=== PATIENT | male | born 1960 | race Caucasian/White ===

== ENCOUNTER 2025-03-25 19:13 | Inpatient (IN) | payer MEDICAID, OTHER ==
[~2025-03-25] VITALS: Ht 188 cm; Wt 83.0 kg
--- NOTE | 2025-03-25 20:03 | ED.PDOC ---
History of Present Illness HPI Comments 64 year-old male, with a Hx of DM, presents to the ED via wheelchair with a chief complaint of L foot pain and swelling for X1 month. Patient reports being non-compliant with DM medications, used to take Metformin but has not in a long time. Left foot is moist with yellow drainage from the big toe, strong odor from the L foot. Patient is not on any antibiotics at the moment. Patient has no further complaints or modifying factors at this time. Patient denies symptoms of weakness, fever, chills, dizziness, or N/V/D. REVIEW OF SYSTEMS: General: No fever, no chills, or fatigue HEENT: No sore throat, no earache, no congestion, no neck pain. Cardiac: No chest pain. No palpitations. Lungs: No shortness of breath, no cough. GI: No nausea, no vomiting, no diarrhea, no constipation, no abdominal pain : No dysuria, frequency, or urgency. No hematuria. Musculoskeletal: (+) L foot pain with swelling Skin: No rash, no itching. Neuro: No headache, no dizziness, no weakness (And as sated in HPI) PHYSICAL EXAM: General: Awake, alert and oriented. No acute distress. Skin: Skin in warm, dry and intact. Appropriate color for ethnicity. HEENT: The head is normocephalic and atraumatic. Conjunctivae are clear without exudates or hemorrhage. Sclera is non-icteric. Eyelids are normal in appearance without swelling or lesions. Oral mucosa is pink and moist Neck: The neck is supple with normal range of motion. No JVD. Cardiac: Heart rate and rhythm are normal. No murmurs, gallops, or rubs are auscultated. Respiratory: No signs of respiratory distress. Lung sounds are clear in all lobes bilaterally without rales, rhonchi, or wheezes. Abdominal: Abdomen is soft, non-tender without distention, guarding or rigidity. Bowel sounds are present and normoactive in all four quadrants. Extremities: L foot First second and third toes swollen, erythemas, weeping; erythema and swelling of entire L foot. Diminished DP pulse Neurological: The patient is awake, alert and oriented to person, place, and time with normal speech. Speech is clear. There is no facial asymmetry. Psychiatric: Appropriate mood and affect. Good judgement and insight. Chief Complaint: Wound Check Time Seen by MD: 20:00 Reviewed Notes: Medications, Allergies Allergies: Coded Allergies: NO KNOWN ALLERGIES (Unverified , 03/25/25) Information Source: Patient Mode of Arrival: Wheelchair Severity: Moderate Timing: Months Duration: Since onset Past Medical History PAST MEDICAL HISTORY: DM Surgical History: Denies all surgeries Family History Family History: Reviewed,noncontributory to illness, No family hx of Cancer, No family hx of DM, No family hx of Heart haseeb, No family hx of HTN, No family hx ofKidney haseeb, No family hx of Liver haseeb, No family hx of Lung haseeb, No family hx of Stroke Social History Smoker: Non-Smoker Alcohol: Denies ETOH Use Drugs: Denies Drug Use Lives In: Home Was a procedure done? Was a procedure done?: No Differential Dx Considerations may include: DM foot wound, Cellulitis, Osteomyelitis, SEPSIS X-Ray, Labs, Meds, VS Vital Signs Date Time Temp Pulse Resp B/P (MAP) Pulse Ox O2 Delivery O2 Flow Rate FiO2 03/25/25 21:33 98.8 114 16 100/60 (73) 96 98.8 03/25/25 19:22 98.9 131 18 126/80 96 98.9 Lab Test 03/25/25 19:59 03/25/25 19:54 Range/Units White Blood Count 10.9 H 4.4-10.8 10^3/uL Red Blood Count 3.92 L 4.5-5.90 10^6/uL Hemoglobin 10.9 L 13.5-17.5 g/dL Hematocrit 31.6 L 41.0-53.0 % Mean Corpuscular Volume 80.7 80.0-100.0 fL Mean Corpuscular Hemoglobin 27.8 L 28.0-32.0 pg Mean Corpuscular Hemoglobin Concent 34.4 32.0-36.0 g/dL Red Cell Distribution Width 15.3 H 11.8-14.3 % Platelet Count 255 140-450 10^3/uL Mean Platelet Volume 7.9 6.9-10.8 fL Neutrophils (%) (Auto) 82.2 H 37.0-80.0 % Lymphocytes (%) (Auto) 10.9 10.0-50.0 % Monocytes (%) (Auto) 6.6 0.0-12.0 % Eosinophils (%) (Auto) 0.0 0.0-7.0 % Basophils (%) (Auto) 0.3 0.0-2.0 % Neutrophils # (Auto) 9.0 H 1.6-8.6 10 ^3/uL Lymphocytes # (Auto) 1.2 0.4-5.4 10 ^3/uL Monocytes # (Auto) 0.7 0-1.3 10 ^3/uL Eosinophils # (Auto) 0 0-0.8 10 ^3/uL Basophils # (Auto) 0 0-0.2 10 ^3/uL Nucleated Red Blood Cells 0.1 % Sodium Level 121 L 136-145 mmol/L Potassium Level 4.1 3.5-5.1 mmol/L Chloride Level 86 L 98-107 mmol/L Carbon Dioxide Level 29 20-31 mmol/L Anion Gap 6 5-15 Blood Urea Nitrogen 12 9-23 mg/dL Creatinine 1.35 H 0.700-1.30 mg/dL Glomerular Filtration Rate Calc 59 >90 mL/min BUN/Creatinine Ratio 8.9 L 10.0-20.0 Serum Glucose 238 H 74-106 mg/dL Calcium Level 8.3 L 8.7-10.4 mg/dL Lactic Acid Level 1.2 0.4-2.0 mmol/L Current Medications Medications (Trade) Dose Ordered Sig/Thea Route Start Time Stop Time Status Last Admin Ceftriaxone Sodium 50 ml @ 100 mls/hr ONCE ONCE IV 03/25/25 20:15 03/25/25 20:44 DC 03/25/25 21:46 Vancomycin HCl 250 ml @ 250 mls/hr ONCE ONCE IV 03/25/25 20:15 03/25/25 21:14 DC 03/25/25 22:18 Time of 1ST Reevaluation: 20:46 Reevaluation 1ST: Unchanged Patient Education/Counseling: Diagnosis, Treatment Family Education/Counseling: No Family Present SEPSIS Sepsis Screen Date sepsis recognized/suspect: Mar 25, 2025 Time Sepsis recognized/suspect: 1929 Recent Procedure: No On Antibiotic Therapy: No Respiratory Rate >20: No Heart Rate >90: Yes Temp<36 C (96.8 F) or >38.3 C: No SBP <90 or MAP <65 mmHG: No New Acute Mental Status Change: No Is the patient on CPAP, BIPAP,: No Physician Orders Wound Culture W/ Gs (03/25/25 19:39) Blood Culture (03/25/25 19:39) L Foot 3 View Xray (03/25/25 19:39) Lt Low Ext Art Duplex (03/25/25 20:03) Cefepime 1gm/50ml (Maxipime 1gm/50ml) (03/26/25 10:00) Vancomycin Per Pharmacy (03/25/25 23:30) *Podiatry Consult Musson(Dvmg) (03/25/25 23:26) Mri L Foot Wo Contrast (03/25/25 23:26) Consistent Carb(Ccho)Diabetes (03/26/25 Breakfast) Basic Metabolic Panel (03/26/25 04:00) Glucose Blood (Accu-Chek Comfort Curve T (03/26/25 00:00) Insulin R (Human) (Insulin R) (03/26/25 00:00) Dextrose 50% Syringe (03/25/25 23:30) Admit (03/25/25 23:26) Hydrocodone-Acet 5/325mg Tab ([place] 5/32 (03/25/25 23:30) Ondansetron Hcl (Zofran) (03/25/25 23:30) Complete Blood Count (03/26/25 04:00) Condition: Stable (03/25/25 23:26) Acetaminophen Tablet (Tylenol Tablet) (03/25/25 23:30) Bedrest With Bathroom Privileg (03/25/25 23:26) Cefepime 1gm/50ml (Maxipime 1gm/50ml) (03/25/25 23:45) Vital Signs Date Time Temp Pulse Resp B/P (MAP) Pulse Ox O2 Delivery O2 Flow Rate FiO2 03/25/25 21:33 98.8 114 16 100/60 (73) 96 98.8 03/25/25 19:22 98.9 131 18 126/80 96 98.9 Laboratory Tests Test 03/25/25 19:54 03/25/25 19:59 Lactic Acid Level 1.2 mmol/L (0.4-2.0) White Blood Count 10.9 10^3/uL (4.4-10.8) H Medications Medications Dose Ordered Sig/Thea Route Start Time Stop Time Status Last Admin Dose Admin Ceftriaxone Sodium 50 ml @ 100 mls/hr ONCE ONCE IV 03/25/25 20:15 03/25/25 20:44 DC 03/25/25 21:46 Vancomycin HCl 250 ml @ 250 mls/hr ONCE ONCE IV 03/25/25 20:15 03/25/25 21:14 DC 03/25/25 22:18 Departure 1 Departure Time of Disposition: 22:04 Impression: Primary Impression: Diabetic foot infection Additional Impression: Osteoporosis Disposition: ADMITTED INPATIENT Condition: Stable Comments [age] male who presents with left foot infection, history of untreated diabetes Antibiotics initiated in the emergency department Extra suggestive of osteoporosis Patient admitted to hospitalist service for further treatment, evaluation and monitoring. Critical Care Note Critical Care Time?: No Stability Stability form required: No Heart Score Heart Score: Heart Score Response (Comments) Value History N/A 0 EKG N/A 0 Age N/A 0 Risk Factors N/A 0 Troponin N/A 0 Total 0 I personally scribed for KADEEM HARMAN MD ([email or web address]) on 03/25/25 at 20:03. Electronically submitted by Gaviota Sanders ([employer]). I personally scribed for KADEEM HARMAN MD ([email or web address]) on 03/25/25 at 20:10. Electronically submitted by Gaviota Sanders ([employer]). KADEEM HARMAN MD Mar 25, 2025 20:03
[2025-03-25 20:28] LABS: Hematocrit 31.6 % (41.0-53.0); Hemoglobin 10.9 g/dL (13.5-17.5); Mean Corpuscular Hemoglobin 27.8 pg (28.0-32.0); Mean Corpuscular Volume 80.7 fL (80.0-100.0); Nucleated Red Blood Cells % 0.1 %
[2025-03-25 20:40] LABS: Potassium 4.1 mmol/L (3.5-5.1)
[2025-03-25 20:41] LABS: Anion Gap 6 (5-15); Carbon Dioxide 29 mmol/L (20-31)
[2025-03-25 20:43] LABS: Calcium 8.3 mg/dL (8.7-10.4); Chloride 86 mmol/L (98-107); Sodium 121 mmol/L (136-145)
[2025-03-25 20:46] LABS: BUN/Creatinine Ratio 8.9 (10.0-20.0); Blood Urea Nitrogen 12 mg/dL (9-23)
[2025-03-25 20:49] LABS: Glucose 238 mg/dL (74-106)
--- NOTE | 2025-03-25 21:18 | DVH ---
CLINICAL INDICATION: LEFT FOOT WOUND TECHNIQUE: 3 radiographic views of the left foot were obtained. COMPARISON: None FINDINGS/IMPRESSION: G areas of osteoporosis are noted. There are no radiopaque foreign bodies. Recommend MRI to exclude osteomyelitis
--- NOTE | 2025-03-25 21:32 | DVH ---
BILATERAL Lower Extremity Arterial Duplex Date: 03/25/2025 08:50 PM CLINICAL HISTORY: R/O PAD VS ISCHEMIA, LEFT FOOT WOUND COMPARISON: None TECHNIQUE: Duplex Doppler evaluation including color Doppler and spectral/pulsed waveform analysis of the lower extremity arteries was performed. Finding: LEFT: Peak systolic velocities are as follows: ACCOUNTS RECEIVABLE ASSOCIATE 71 cm/s triphasic waveform Deep femoral 59 cm/s triphasic waveform SFA proximal 74 cm/s triphasic waveforms SFA mid-portion 88 cm/s triphasic waveform SFA distal 67cm/s triphasic waveform Popliteal Proximal popliteal artery 87 cm/sec triphasic waveform Distal popliteal artery: 130 cm/sec triphasic waveform Posterior tibial 120 cm/s monophasic waveform Anterior tibial 173 cm/s monophasic waveform Dorsalis pedis 142 cm/s monophasic waveform The waveforms are monophasic and triphasic waveform. REFERENCE VALUES, [facility] ([facility], [facility]) vascular Imaging Lab Criteria: Peak systolic velocity ranges (in cm/sec) are as follows: <150 cm/s - <20 % stenosis 150-200 cm/s - 20-49% stenosis 200-300 cm/s - 50-75% stenosis >300 cm/s -> 75% stenosis IMPRESSION: 1. There is no findings arterial insufficiency in the left lower extremity proximal of the popliteal artery. 2. Elevated velocities and monophasic waveform are noted in the distal popliteal artery anterior tibial artery posterior tibial artery and dorsalis pedis.
[2025-03-25] MEDS: VANCOMYCIN 1GM/250ML KIT 250 ML IV ONE (22:18)
[2025-03-25] MEDS ORDERED: DEXTROSE (50%) 50ML SYRG IV PRN (23:30)
[2025-03-25] MEDS ORDERED: ACETAMINOPHEN 325 MG TAB PO PRN (23:30)
[2025-03-25] MEDS ORDERED: VANCOMYCIN PER PHARMACY 0 MG IV SCH (23:30)
[2025-03-25] MEDS ORDERED: ONDANSETRON HCL 4 MG/2 ML VIAL IV PRN (23:30)
--- NOTE | 2025-03-25 23:33 | DVHHP2 ---
History of Present Illness Reason for Visit: Foot infection History of Present Illness 64-year-old male presents for evaluation of left foot infection. Patient reports noticing his left foot swelling a month ago. He states as progressively gotten worse with discharge and foul smell. He has also noticed areas of dark discoloration between his toes. Denies fever or chills. Past Medical History Diabetes mellitus Past Surgical History Denies Family History Noncontributory Smoke: No ALCOHOL: none Drugs: None Lives: with Family Review of Systems Review of Systems Review of systems are currently negative otherwise addressed in HPI. Allergies: Coded Allergies: NO KNOWN ALLERGIES (Unverified , 03/25/25) Exam Vital Signs Vital Signs Date Time Temp Pulse Resp B/P (MAP) Pulse Ox O2 Delivery O2 Flow Rate FiO2 03/25/25 21:33 98.8 114 16 100/60 (73) 96 98.8 Exam Gen: 64-year-old male in mild distress Skin: Warm, dry, normal color and texture, no rash. HEENT: Normocephalic atraumatic, mucous membranes moist and pink. Neck: Cervical and supraclavicular nodes normal without enlargement, trachea is midline, thyroid gland is normal without masses. Pulmonary: Clear to auscultation and percussion bilaterally. Cardiac: Regular rate and rhythm. No murmur Abdomen: Soft, nontender, nondistended, bowel sounds present all 4 quadrants, no guarding, no rigidity, no organomegaly. Extremities: No cyanosis, clubbing, left foot with foul-smelling discharge, cellulitis Neuro: Cranial nerves II through XII grossly intact, normal affect and speech, no focal motor deficits. Labs/Xrays ORDERING PHYSICIAN: KADEEM HARMAN MD PROCEDURE(s): LFOOT - L FOOT 3 VIEW XRAY REASON: LEFT FOOT WOUND ORDER NUMBER(s): [id number], ACCESSION NUMBER(s): [id number] CLINICAL INDICATION: LEFT FOOT WOUND TECHNIQUE: 3 radiographic views of the left foot were obtained. COMPARISON: None FINDINGS/IMPRESSION: G areas of osteoporosis are noted. There are no radiopaque foreign bodies. Recommend MRI to exclude osteomyelitis RING PHYSICIAN: KADEEM HARMAN MD PROCEDURE(s): LLEAD - Lt Low Ext Art Duplex REASON: R/O PAD VS ISCHEMIA, LEFT FOOT WOUND ORDER NUMBER(s): [id number], ACCESSION NUMBER(s): [id number] BILATERAL Lower Extremity Arterial Duplex Date: 03/25/2025 08:50 PM CLINICAL HISTORY: R/O PAD VS ISCHEMIA, LEFT FOOT WOUND COMPARISON: None TECHNIQUE: Duplex Doppler evaluation including color Doppler and spectral/pulsed waveform analysis of the lower extremity arteries was performed. Finding: LEFT: Peak systolic velocities are as follows: LICENSED CLINICIAN 71 cm/s triphasic waveform Deep femoral 59 cm/s triphasic waveform SFA proximal 74 cm/s triphasic waveforms SFA mid-portion 88 cm/s triphasic waveform SFA distal 67cm/s triphasic waveform Popliteal Proximal popliteal artery 87 cm/sec triphasic waveform Distal popliteal artery: 130 cm/sec triphasic waveform Posterior tibial 120 cm/s monophasic waveform Anterior tibial 173 cm/s monophasic waveform Dorsalis pedis 142 cm/s monophasic waveform The waveforms are monophasic and triphasic waveform. REFERENCE VALUES, [facility]) vascular Imaging Lab Criteria: Peak systolic velocity ranges (in cm/sec) are as follows: <150 cm/s - <20 % stenosis 150-200 cm/s - 20-49% stenosis 200-300 cm/s - 50-75% stenosis >300 cm/s -> 75% stenosis IMPRESSION: 1. There is no findings arterial insufficiency in the left lower extremity proximal of the popliteal artery. 2. Elevated velocities and monophasic waveform are noted in the distal popliteal artery anterior tibial artery posterior tibial artery and dorsalis pedis. Labs Test 03/25/25 19:59 03/25/25 19:54 Range/Units White Blood Count 10.9 H 4.4-10.8 10^3/uL Red Blood Count 3.92 L 4.5-5.90 10^6/uL Hemoglobin 10.9 L 13.5-17.5 g/dL Hematocrit 31.6 L 41.0-53.0 % Mean Corpuscular Volume 80.7 80.0-100.0 fL Mean Corpuscular Hemoglobin 27.8 L 28.0-32.0 pg Mean Corpuscular Hemoglobin Concent 34.4 32.0-36.0 g/dL Red Cell Distribution Width 15.3 H 11.8-14.3 % Platelet Count 255 140-450 10^3/uL Mean Platelet Volume 7.9 6.9-10.8 fL Neutrophils (%) (Auto) 82.2 H 37.0-80.0 % Lymphocytes (%) (Auto) 10.9 10.0-50.0 % Monocytes (%) (Auto) 6.6 0.0-12.0 % Eosinophils (%) (Auto) 0.0 0.0-7.0 % Basophils (%) (Auto) 0.3 0.0-2.0 % Neutrophils # (Auto) 9.0 H 1.6-8.6 10 ^3/uL Lymphocytes # (Auto) 1.2 0.4-5.4 10 ^3/uL Monocytes # (Auto) 0.7 0-1.3 10 ^3/uL Eosinophils # (Auto) 0 0-0.8 10 ^3/uL Basophils # (Auto) 0 0-0.2 10 ^3/uL Nucleated Red Blood Cells 0.1 % Sodium Level 121 L 136-145 mmol/L Potassium Level 4.1 3.5-5.1 mmol/L Chloride Level 86 L 98-107 mmol/L Carbon Dioxide Level 29 20-31 mmol/L Anion Gap 6 5-15 Blood Urea Nitrogen 12 9-23 mg/dL Creatinine 1.35 H 0.700-1.30 mg/dL Glomerular Filtration Rate Calc 59 >90 mL/min BUN/Creatinine Ratio 8.9 L 10.0-20.0 Serum Glucose 238 H 74-106 mg/dL Calcium Level 8.3 L 8.7-10.4 mg/dL Lactic Acid Level 1.2 0.4-2.0 mmol/L SEPSIS Sepsis Screen Date sepsis recognized/suspect: Mar 25, 2025 Time Sepsis recognized/suspect: 2132 Recent Procedure: No On Antibiotic Therapy: Yes Respiratory Rate >20: No Heart Rate >90: Yes Temp<36 C (96.8 F) or >38.3 C: No SBP <90 or MAP <65 mmHG: No New Acute Mental Status Change: No Is the patient on CPAP, BIPAP,: No Physician Orders Wound Culture W/ Gs (03/25/25 19:39) Blood Culture (03/25/25 19:39) L Foot 3 View Xray (03/25/25 19:39) Lt Low Ext Art Duplex (03/25/25 20:03) Vital Signs Date Time Temp Pulse Resp B/P (MAP) Pulse Ox O2 Delivery O2 Flow Rate FiO2 03/25/25 21:33 98.8 114 16 100/60 (73) 96 98.8 03/25/25 19:22 98.9 131 18 126/80 96 98.9 Laboratory Tests Test 03/25/25 19:54 03/25/25 19:59 Lactic Acid Level 1.2 mmol/L (0.4-2.0) White Blood Count 10.9 10^3/uL (4.4-10.8) H Medications Medications Dose Ordered Sig/Thea Route Start Time Stop Time Status Last Admin Dose Admin Ceftriaxone Sodium 50 ml @ 100 mls/hr ONCE ONCE IV 03/25/25 20:15 03/25/25 20:44 DC 03/25/25 21:46 100 MLS/HR Vancomycin HCl 250 ml @ 250 mls/hr ONCE ONCE IV 03/25/25 20:15 03/25/25 21:14 DC 03/25/25 22:18 250 MLS/HR Assessment/Plan Assessment/Plan Assessment ? Left foot osteomyelitis Uncontrolled diabetes mellitus Plan Admit the patient to [facility] to the hospitalist Podiatry consult MRI of the foot pending Cefepime/vancomycin Continue treatment per orders. Plan discussed with: Patient Date of Service: Mar 25, 2025 Billing Provider: NEYMAR FUNES Common Visit Codes: [id number] INP/OBS CARE (MOD) NEYMAR FUNES Mar 25, 2025 23:33
[2025-03-26] MEDS: InsuLIN REG 1unit/0.01ml Soln (100units/ml) SC SCH
[2025-03-26] MEDS: ACCU-CHEK COMFORT CURVE STRIP VI SCH (01:35)
[2025-03-26] MEDS: CEFEPIME 1GM/50ML D5W or NS KIT IV ONE (01:46)
[2025-03-26] MEDS: HYDROcodone-ACET 5/325MG TAB PO PRN (02:28)
[2025-03-26 07:01] LABS: Hematocrit 30.9 % (41.0-53.0); Hemoglobin 10.2 g/dL (13.5-17.5); Mean Corpuscular Hemoglobin 27.0 pg (28.0-32.0); Mean Corpuscular Volume 81.4 fL (80.0-100.0); Nucleated Red Blood Cells % 0.1 %
[2025-03-26 07:10] LABS: Anion Gap 6 (5-15); Carbon Dioxide 29 mmol/L (20-31); Potassium 3.7 mmol/L (3.5-5.1)
[2025-03-26 07:16] LABS: Calcium 8.2 mg/dL (8.7-10.4); Chloride 87 mmol/L (98-107); Sodium 122 mmol/L (136-145)
[2025-03-26 07:17] LABS: BUN/Creatinine Ratio 10.4 (10.0-20.0); Blood Urea Nitrogen 16 mg/dL (9-23); Glucose 105 mg/dL (74-106)
--- NOTE | 2025-03-26 08:38 | DVH ---
CHEST RADIOGRAPH Indication: sob Technique: Single frontal view of the chest was obtained COMPARISON: None FINDINGS: Lines and Tubes: None Lungs: Mild diffuse increased interstitial prominence. Pleura: No effusion.No pneumothorax. Cardiomediastinal contours: Unremarkable Bones: Unremarkable IMPRESSION: Possible mild pulmonary vascular congestion versus viral pneumonitis.
--- NOTE | 2025-03-26 09:31 | DVH ---
EXAM: MRI MRI L FOOT WO CONTRAST HISTORY: Rule out osteomyelitis COMPARISON: None TECHNIQUE: Multiplanar, multisequence MRI was performed. FINDINGS: There is dorsal subluxation /dislocation of the 2nd MTP joint with diffuse bone marrow edema noted in the 2nd metatarsal head and neck and throughout the 2nd metatarsal proximal and middle phalanges. The 2nd distal phalanx can not be evaluated due to susceptibility artifact from a retained metallic object. Small 3rd MTP joint effusion. Bone marrow edema is noted in the 3rd proximal phalanx with erosion of the plantar basal cortices compatible with acute osteomyelitis. There is dorsal subluxation of the 3rd MTP joint. There is bone marrow edema in the 3rd metatarsal head. Small 3rd MTP joint effusion. Diffuse soft tissue swelling noted on dorsum of the foot and over toes. Numerous subcentimeter foci are seen dorsally and in the plantar soft tissues. Diffuse plantar and interosseous musculature edema noted. No drainable fluid collection is identified. IMPRESSION: 1. Diffuse cellulitis and gas gangrene of the foot. 2. Septic joint of the 2nd and 3rd MTP joints with osteomyelitis of the corresponding metatarsal heads phalanges. 3. Plantar and interosseous myositis. 4. No drainable fluid collection.
[2025-03-26 09:46] LABS: INR 1.29 (0.9-1.15); Partial Thromboplastin Time 38.1 SEC (24.5-34.5); Prothrombin Time 13.3 sec (9.3-11.8)
[2025-03-26 10:48] VITALS: RESP 18
--- NOTE | 2025-03-26 11:57 | DVHCONRES ---
Date Seen: Mar 26, 2025 Reason for Consultation Left foot wound History of Present Illness 64-year-old male presents for evaluation of left foot infection. Patient reports noticing his left foot swelling a month ago. He states as progressively gotten worse with discharge and foul smell. He has also noticed areas of dark discoloration between his toes. Denies fever or chills. Past Medical History See H&P Past Surgical History See H&P Allergies: Coded Allergies: NO KNOWN ALLERGIES (Unverified , 03/25/25) Current Medications Current Medications Medications (Trade) Dose Ordered Sig/Thea Route PRN Reason Start Time Stop Time Status Last Admin Cefepime HCl 50 ml @ 12.5 mls/hr Q12HR IV 03/26/25 10:00 Vancomycin HCl 0 ml @ 0 mls/hr PER PHARMACY IV 03/25/25 23:30 Diagnostic Test (Pha) (Accu-Chek Comfort Curve T) 1 strip Q6HR 03/26/25 00:00 03/26/25 08:34 Insulin Human Regular (InsuLIN R) Q6HR SC 03/26/25 00:00 03/26/25 01:57 Dextrose 50 ml UD PRN IV Blood Sugar LESS THAN 60 03/25/25 23:30 Acetaminophen/ Hydrocodone Bitart ([place] 5/325MG Tab) 1 tab Q4HP PRN PO MODERATE PAIN (4-6 PAIN SCALE) 03/25/25 23:30 03/26/25 02:28 Ondansetron HCl (Zofran) 4 mg Q4HP PRN IV NAUSEA / VOMITING 03/25/25 23:30 Acetaminophen (Tylenol Tablet) 650 mg Q6HP PRN PO PAIN SCALE 1-3 OR TEMP>100.4 03/25/25 23:30 Clindamycin Phosphate 50 ml @ 50 mls/hr Q8HR IV 03/26/25 14:00 Vital Signs Vital Signs Date Time Temp Pulse Resp B/P (MAP) Pulse Ox O2 Delivery O2 Flow Rate FiO2 03/26/25 10:48 18 Room Air* 0 21 03/26/25 09:59 85 122/73 (89) 99 03/26/25 08:27 97.7 97.7 Physical Exam Dermatological: Skin is dry with mild erythema and some maceration around the wound site No gross deformities noted Mild non-pitting edema present bilaterally Left foot cellulitis with erythema and purulent drainage exposed bone Vascular: Dorsalis pedis and posterior tibial pulses are 1+ bilaterally Capillary refill is under 2 seconds Skin temperature is warm bilaterally Neurologic: Protective sensation is absent on the plantar forefoot bilaterally Monofilament testing reveals decreased sensation in multiple plantar sites Musculoskeletal: Range of motion at the ankle and MTP joints is within normal limits. Strength is 5/5 in all tested muscle groups. Gait is antalgic due to offloading of the affected limb. Labs/Diagnostic Data Labs Test 03/26/25 06:25 03/26/25 01:31 03/25/25 19:54 Range/Units White Blood Count 11.5 H 4.4-10.8 10^3/uL Red Blood Count 3.79 L 4.5-5.90 10^6/uL Hemoglobin 10.2 L 13.5-17.5 g/dL Hematocrit 30.9 L 41.0-53.0 % Mean Corpuscular Volume 81.4 80.0-100.0 fL Mean Corpuscular Hemoglobin 27.0 L 28.0-32.0 pg Mean Corpuscular Hemoglobin Concent 33.2 32.0-36.0 g/dL Red Cell Distribution Width 15.4 H 11.8-14.3 % Platelet Count 251 140-450 10^3/uL Mean Platelet Volume 7.7 6.9-10.8 fL Neutrophils (%) (Auto) 72.4 37.0-80.0 % Lymphocytes (%) (Auto) 17.9 10.0-50.0 % Monocytes (%) (Auto) 9.0 0.0-12.0 % Eosinophils (%) (Auto) 0.2 0.0-7.0 % Basophils (%) (Auto) 0.5 0.0-2.0 % Neutrophils # (Auto) 8.3 1.6-8.6 10 ^3/uL Lymphocytes # (Auto) 2.1 0.4-5.4 10 ^3/uL Monocytes # (Auto) 1.0 0-1.3 10 ^3/uL Eosinophils # (Auto) 0 0-0.8 10 ^3/uL Basophils # (Auto) 0.1 0-0.2 10 ^3/uL Nucleated Red Blood Cells 0.1 % Prothrombin Time 13.3 H 9.3-11.8 sec Prothrombin Time INR 1.29 H 0.9-1.15 Activated Partial Thromboplast Time 38.1 H 24.5-34.5 SEC Sodium Level 122 L 136-145 mmol/L Potassium Level 3.7 3.5-5.1 mmol/L Chloride Level 87 L 98-107 mmol/L Carbon Dioxide Level 29 20-31 mmol/L Anion Gap 6 5-15 Blood Urea Nitrogen 16 9-23 mg/dL Creatinine 1.54 H 0.700-1.30 mg/dL Glomerular Filtration Rate Calc 51 >90 mL/min BUN/Creatinine Ratio 10.4 10.0-20.0 Serum Glucose 105 # 74-106 mg/dL Hemoglobin A1c 8.6 H <5.7 % A1C Serum Osmolality 260 L 278-298 mOsm/kg Calcium Level 8.2 L 8.7-10.4 mg/dL B-Type Natriuretic Peptide 46.26 0-100 pg/mL Vitamin B12 Level 1321 H 211-911 pg/mL Vitamin D 25-Hydroxy 22.4 L 30.0-100 ng/mL Thyroid Stimulating Hormone (TSH) 3.56 0.55-4.78 uIU/mL POC Glucose 365 H 70-106 mg/dl Lactic Acid Level 1.2 0.4-2.0 mmol/L Problems(with codes): (1) Osteoporosis (2) Diabetic foot infection Plan/Recommendation ASSESSMENT: Patient is a [age] year old seen on the floor for a worsening ulcer PLAN: - The patients chart was reviewed, clinical findings were discussed with the patient, the etiologies of the conditions were discussed in detail, and a treatment plan was agreed to at this time, with both oral and written instructions provided. - reviewed advanced imaging - discussed plan is to perform an incision and drainage - patient has not been NPO - take him to the OR today - we will get cultures in the OR - can weightbear as tolerated in postoperative shoe All questions were answered and concerns addressed to the patient's satisfaction. The patient was given the phone number to the clinic and was told how to make contact with the clinic should any concerns or questions arise. Patient understands that if any questions or concerns arise prior to the next appointment, we should be contacted immediately. FOLLOW-UP: Continue to follow while inpatient Plan discussed with: Patient Visit Coding Podiatry Date of Service if different f: Mar 26, 2025 Billing Provider: KIM DIAS DPM Podiatry Common Visit Codes: CONSULT ONLY Podiatry Consult Codes: 43887-NL/OBS [id number] NEW/EST HI 80 KIM DIAS DPM Mar 26, 2025 11:56
[2025-03-26] MEDS: LIDOCAINE 1% HCL (LOCAL ANESTH.) INJ 20ML MDV ONE (12:08)
[2025-03-26 12:20] VITALS: PULSE 88; RESP 16; O2SAT 99
--- NOTE | 2025-03-26 12:20 | DVHOP2 ---
Operative Report - 2 Report Details Date: 03/26/25 Preop Diagnosis: 1. Left foot osteomyelitis 2. Left foot abscess 3. Left foot cellulitis 4. Left foot necrotizing fasciitis 5. Left foot diabetic ulcer Postop Diagnosis: Same as preop Surgeon: Kim Dias MD Anesthesiologist: None Anesthesia: Local Consent: The patient was informed of the risks and benefits of the procedure. These include but are not limited to complications of anesthesia, postoperative infection, incomplete relief of symptoms, recurrence of symptoms, damage to blood vessels, nerves and tendons, deep venous thrombosis, pulmonary embolism and possible need for repeat surgery in the future. Complications: None Estimated Blood Loss: Minimal Fluids: See anesthesia Findings: Consistent with diagnosis Indications for Surgery: Worsening foot wound Name of Procedure Performed 1. Left foot I&D to bone dorsal medial (04186) 2. Left foot I&D to bone dorsal lateral ([id number]) Procedure Details Procedure Details: PRE-PROCEDURE INFORMATION: In the pre-op holding area, the extremity to be operated on was clearly marked and the patient verified correct laterality of the marking. The patient was transferred to the OR table and placed in a supine position. A timeout was performed in which identification of the correct patient, procedure, location, and materials was done. The left foot and leg were prepped and draped in normal sterile fashion. DESCRIPTION OF PROCEDURE: Attention was directed to the left medial dorsal foot where area of fluctuance was noted. An incision was made over this area and was deepened through blunt dissection. The incision was deepened to the level of abscess and bone. Care was taken to the dissection to avoid any neurovascular and tendinous structures. The incision was deepened to the bone, and the abscess appeared to be purulent fluid consistent with pus. The cortices of the bone was then removed with rongeur an all necrotic tissue. After the abscess was drained, the area was irrigated with 3 L normal saline using cysto tubing. Deep cultures were then obtained from the wound. The area was then inspected and any areas of tracking, especially along the tendons were also drained. The wound was packed with Betadine-soaked gauze and we will need to be closed at a later date. Attention was directed to the left lateral dorsal foot where area of fluctuance was noted. An incision was made over this area and was deepened through blunt dissection. The incision was deepened to the level of abscess and bone. Care was taken to the dissection to avoid any neurovascular and tendinous structures. The incision was deepened to the bone, and the abscess appeared to be purulent fluid consistent with pus. The cortices of the bone was then removed with rongeur an all necrotic tissue. After the abscess was drained, the area was irrigated with 3 L normal saline using cysto tubing. Deep cultures were then obtained from the wound. The area was then inspected and any areas of tracking, especially along the tendons were also drained. The wound was packed with Betadine-soaked gauze and we will need to be closed at a later date. All surgical wounds were irrigated copiously with saline and closed in layers with the aforementioned suture material. A dry sterile dressing was placed on the surgical extremity. The patient was placed in a postop shoe POSTOPERATIVE INFORMATION: The patient tolerated the above noted procedure and anesthesia well and was transferred to the PACU with vital signs stable, and vascular status intact with capillary refill intact to all digits. Patient will need 6 weeks IV antibiotics. Patient may we need subsequent I&D. Change the dressing every other day with wound care with Betadine-soaked gauze and ABDs. Condition Good Disposition Still a Patient Visit Coding Podiatry Date of Service if different f: Mar 26, 2025 Billing Provider: KIM DIAS DPM Podiatry Common Visit Codes: PROCEDURE ONLY KIM DIAS DPM Mar 26, 2025 12:20
[2025-03-26] MEDS: VANCOMYCIN 500mg/100mL 100 ML IV ONE (13:02)
[2025-03-26] MEDS: VANCOMYCIN 750MG KIT 100 ML IV ONE (13:11)
[2025-03-26] MEDS: CLINDAMYCIN 300MG IV 50 ML IV ONE (13:28)
[2025-03-26] MEDS: CLINDAMYCIN 600MG IV 50 ML IV SCH (14:09)
[2025-03-26] MEDS: CEFEPIME 1GM/50ML 50 ML IV SCH (15:05)
[2025-03-26 16:37] VITALS: BP 136/84; PULSE 95; RESP 18; TEMP 97.6; O2SAT 98
--- NOTE | 2025-03-26 16:52 | DVHPNRES ---
Progress Note Date Seen: Mar 26, 2025 Resident Creating Document: CHARLY HORTON RESIDENT Medical Necessity Reason Pt with a Central, PICC or Fol: No Subjective Review of Systems This is a 64-year-old male with past medical history of DM 2 came to ER with a complaint of left foot pain associated with swelling, redness, and whitish house smelling discharge one month. The foot pain was 9/10, localized, dull in nature, aggravated on hanging or during walking and mild relieved on taking rest and elevation. Denies Any recent history of trauma or MVA. Patient decided came to ER exiting getting worse day by day. Patient noncompliance with medication and not follow-up with primary care. Podiatry consulted and left dorsal foot medial and lateral I and D done on 03/23/2025. Past medical history: Dm 2 Past surgical history: Nothing contributing Family history: Nothing contributory Personal history: Marijuana and alcohol use disorder. PCP: Not selected Allergy: No known allergy Home medication: none Objective vital signs Vital Sign Date Time Temp Pulse Resp B/P (MAP) Pulse Ox O2 Delivery O2 Flow Rate FiO2 03/26/25 15:00 88 15 105/67 (80) 20 03/26/25 12:20 Room Air 0 99 03/26/25 12:20 97.1 97.1 Total Intake and Output 03/25/25 03/25/25 03/26/25 15:00 23:00 07:00 Intake Total 300 ml Balance 300 ml medications Current Medications Medications Dose Ordered Sig/Thea Route Start Time Stop Time Status Last Admin Dose Admin Cefepime HCl 50 ml @ 12.5 mls/hr Q12HR IV 03/26/25 10:00 03/26/25 15:05 12.5 MLS/HR Vancomycin HCl 0 ml @ 0 mls/hr PER PHARMACY IV 03/25/25 23:30 Diagnostic Test (Pha) 1 strip Q6HR 03/26/25 00:00 03/26/25 13:02 1 STRIP Insulin Human Regular Q6HR SC 03/26/25 00:00 03/26/25 12:59 4 UNITS Dextrose 50 ml UD PRN IV 03/25/25 23:30 Acetaminophen/ Hydrocodone Bitart 1 tab Q4HP PRN PO 03/25/25 23:30 03/26/25 02:28 1 TAB Ondansetron HCl 4 mg Q4HP PRN IV 03/25/25 23:30 Acetaminophen 650 mg Q6HP PRN PO 03/25/25 23:30 Clindamycin Phosphate 50 ml @ 50 mls/hr Q8HR IV 03/26/25 14:00 03/26/25 14:09 50 MLS/HR Insulin Glargine 15 units HS SC 03/26/25 22:00 Sodium Chloride 1,000 ml @ 75 mls/hr [id number] IV 03/26/25 16:15 Examination Gen: 64-year-old male in mild distress Skin: Warm, dry, normal color and texture, no rash. HEENT: Normocephalic atraumatic, mucous membranes moist and pink. Neck: Cervical and supraclavicular nodes normal without enlargement, trachea is midline, thyroid gland is normal without masses. Pulmonary: Clear to auscultation and percussion bilaterally. Cardiac: Regular rate and rhythm. No murmur Abdomen: Soft, nontender, nondistended, bowel sounds present all 4 quadrants, no guarding, no rigidity, no organomegaly. Extremities: left foot with foul-smelling discharge Neuro: Cranial nerves II through XII grossly intact, normal affect and speech, no focal motor deficits. laboratory and microbiology Laboratory Tests 03/26/25 06:25 Test 03/26/25 06:25 Range/Units Serum Glucose 105 # 74-106 mg/dL Problem List/Assessment/Plan Problem List/Assessment/Plan Left foot osteomyelitis Left foot sepsis Left foot cellulitis Left foot Necrotizing fascitis Left foot diabetic ulcer Left foot x-ray shows osteoporosis noted, recommended MRI. Duplex left lower extremity no finding of arterial insufficiency. MRI left foot: Diffuse cellulitis and gas gangrene of left foot, septic joint of 2nd and 3rd MTP joints with osteomyelitis. Plantar and interosseous myositis. Podiatry consulted and I and D medial and lateral left foot done on 03/26/2025. IVF Empiric antibiotic cefepime, vancomycin and clindamycin Enhancement IV antiemetic if needed Blood culture Wound culture wound consult PICC line needs 6 weeks of antibiotic during discharge. 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 More than 23 minute spent with patient. Full code status. Case discussed with Dr. Calix. Plan discussed with: Patient, Other (Nurse) My Orders My Orders Orders - CHARLY HORTON Procedure Category Date Status Time Clindamycin 600mg Iv PHA 03/26/25 In Process (Cleocin Iv) 14:00 Visit Coding STANDARD RES Billing Provider: LEON CALIX MD Date of Service if different f: Mar 26, 2025 Common Visit Codes: [id number] INP/OBS CARE(HIGH) CHARLY HORTON Mar 26, 2025 16:52 LEON CALIX MD Apr 02, 2025 15:45
[2025-03-26 17:13] VITALS: PULSE 94; RESP 17; O2SAT 95
[2025-03-26 20:00] VITALS: PULSE 96; RESP 18; O2SAT 99
[2025-03-26 21:00] VITALS: BP 122/73; PULSE 96; RESP 18; TEMP 98.1; O2SAT 99
[2025-03-26] MEDS: HYDROcodone-ACET 5/325MG TAB PO ONE (21:09)
[2025-03-26] MEDS: INSULIN LANTUS (GLARGINE) 1 /0.01ml (100units/ml) SC SCH (22:04)
[2025-03-27] VITALS (7 sets, daily range): BP systolic 102–135; BP diastolic 57–80; PULSE 85–107; RESP 16–19; TEMP 97.8–98.6; O2SAT 96–97
[2025-03-27 04:39] LABS: Hematocrit 28.9 % (41.0-53.0); Hemoglobin 9.7 g/dL (13.5-17.5); Mean Corpuscular Hemoglobin 27.2 pg (28.0-32.0); Mean Corpuscular Volume 81.4 fL (80.0-100.0); Nucleated Red Blood Cells % 0.2 %
[2025-03-27 04:48] LABS: Alanine Aminotransferase 20 U/L (7-40); Anion Gap 5 (5-15); BUN/Creatinine Ratio 13.4 (10.0-20.0); Blood Urea Nitrogen 18 mg/dL (9-23); Carbon Dioxide 29 mmol/L (20-31); Potassium 4.0 mmol/L (3.5-5.1); Total Protein 6.3 g/dL (5.7-8.2)
[2025-03-27 04:49] LABS: Bilirubin, Total 0.8 mg/dL (0.2-1.0)
[2025-03-27 04:50] LABS: Alkaline Phosphatase 173 U/L (46-116); Chloride 90 mmol/L (98-107); Glucose 179 mg/dL (74-106); Sodium 124 mmol/L (136-145)
[2025-03-27 04:51] LABS: Albumin 2.7 g/dL (3.2-4.8); Calcium 7.8 mg/dL (8.7-10.4)
[2025-03-27] MEDS: SODIUM CHLORIDE 0.9% 1,000 ML IV SCH (05:34)
[2025-03-27] MEDS: FAMOTIDINE 20 MG TAB PO SCH (09:13)
[2025-03-27] MEDS: HEPARIN SODIUM (PORCINE) 5000 UNITS/ML 1ML VIAL SC SCH (09:17)
[2025-03-27] MEDS: VANCOMYCIN 750MG KIT 100 ML IV ONE (13:30)
--- NOTE | 2025-03-27 17:57 | DVHPNRES ---
Progress Note Date Seen: Mar 27, 2025 Resident Creating Document: CHARLY HORTON RESIDENT Medical Necessity Reason Pt with a Central, PICC or Fol: No Subjective Review of Systems This is a 64-year-old male with past medical history of DM 2 came to ER with a complaint of left foot pain associated with swelling, redness, and whitish house smelling discharge one month. The foot pain was 9/10, localized, dull in nature, aggravated on hanging or during walking and mild relieved on taking rest and elevation. Denies Any recent history of trauma or MVA. Patient decided came to ER exiting getting worse day by day. Patient noncompliance with medication and not follow-up with primary care. Podiatry consulted and left dorsal foot medial and lateral I and D done on 03/23/2025. Past medical history: Dm 2 Past surgical history: Nothing contributing Family history: Nothing contributory Personal history: Marijuana and alcohol use disorder. PCP: Not selected Allergy: No known allergy Patient seen and evaluated in bedside today. Patient denies any acute distress pain significantly improved with current pain management. Patient left foot covered with dry bandage. IV antibiotic and patient counseling for PICC line. Verbally agree and signed consent paper for PICC line. Podiatry consult appreciated. Objective vital signs Vital Sign Date Time Temp Pulse Resp B/P (MAP) Pulse Ox O2 Delivery O2 Flow Rate FiO2 03/27/25 17:00 98.0 97 18 135/79 (97) 96 98.0 03/27/25 08:00 Room Air* 0 21 Total Intake and Output 03/26/25 03/26/25 03/27/25 15:00 23:00 07:00 Intake Total 150 ml 50 ml 750 ml Output Total 700 ml Balance 150 ml 50 ml 50 ml medications Current Medications Medications Dose Ordered Sig/Thea Route Start Time Stop Time Status Last Admin Dose Admin Cefepime HCl 50 ml @ 12.5 mls/hr Q12HR IV 03/26/25 10:00 03/27/25 09:13 12.5 MLS/HR Vancomycin HCl 0 ml @ 0 mls/hr PER PHARMACY IV 03/25/25 23:30 Diagnostic Test (Pha) 1 strip Q6HR 03/26/25 00:00 03/27/25 17:37 1 STRIP Insulin Human Regular Q6HR SC 03/26/25 00:00 03/27/25 11:36 6 UNITS Dextrose 50 ml UD PRN IV 03/25/25 23:30 Acetaminophen/ Hydrocodone Bitart 1 tab Q4HP PRN PO 03/25/25 23:30 03/27/25 17:35 1 TAB Ondansetron HCl 4 mg Q4HP PRN IV 03/25/25 23:30 Acetaminophen 650 mg Q6HP PRN PO 03/25/25 23:30 Clindamycin Phosphate 50 ml @ 50 mls/hr Q8HR IV 03/26/25 14:00 03/27/25 13:24 50 MLS/HR Insulin Glargine 15 units HS SC 03/26/25 22:00 03/26/25 22:04 15 UNITS Heparin Sodium (Porcine) 5,000 units Q12HR SC 03/27/25 10:00 Famotidine 20 mg DAILY PO 03/27/25 10:00 03/27/25 09:13 20 MG Examination Gen: 64-year-old male in mild distress Skin: Warm, dry, normal color and texture, no rash. HEENT: Normocephalic atraumatic, mucous membranes moist and pink. Neck: Cervical and supraclavicular nodes normal without enlargement, trachea is midline, thyroid gland is normal without masses. Pulmonary: Clear to auscultation and percussion bilaterally. Cardiac: Regular rate and rhythm. No murmur Abdomen: Soft, nontender, nondistended, bowel sounds present all 4 quadrants, no guarding, no rigidity, no organomegaly. Extremities: left foot covered with dry gauze bandage, right foot no acute changes and 2+ pulses bilateral lower extremity Neuro: Cranial nerves II through XII grossly intact, normal affect and speech, no focal motor deficits. laboratory and microbiology Laboratory Tests 03/27/25 04:12 Test 03/27/25 04:12 Range/Units Serum Glucose 179 H 74-106 mg/dL Microbiology Date/Time Source Procedure Growth Status 03/26/25 12:10 Foot Left Gram Stain - Final Resulted 03/26/25 12:10 Foot Left Anaerobic Culture - Preliminary Resulted 03/26/25 12:10 Foot Left Aerobic Culture - Preliminary Resulted 03/25/25 20:08 Blood Blood Culture - Preliminary NO GROWTH AFTER 24 HOURS OF INCUBATION. Resulted Problem List/Assessment/Plan Problem List/Assessment/Plan Left foot osteomyelitis Left foot sepsis Left foot cellulitis Left foot Necrotizing fascitis Left foot diabetic ulcer Left foot x-ray shows osteoporosis noted, recommended MRI. Duplex left lower extremity no finding of arterial insufficiency. MRI left foot: Diffuse cellulitis and gas gangrene of left foot, septic joint of 2nd and 3rd MTP joints with osteomyelitis. Plantar and interosseous myositis. Podiatry consulted and I and D medial and lateral left foot done on 03/26/2025. IVF Empiric antibiotic cefepime, vancomycin and clindamycin IV antiemetic if needed Vitamin-C and zinc Blood culture x2 negative Wound culture showed Gram-positive cocci in pairs, Gram-negative rods and Gram- positive cocci in chain. Awaiting for final sensitivity. PICC line , 4-6 weeks of antibiotic during discharge. 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 More than 21 minute spent with patient. Full code status. Case discussed with Dr. Calix. Plan discussed with: Patient, Other (Nurse) My Orders My Orders Orders - CHARLY HORTON Procedure Category Date Status Time * Wound Consult CONS 03/26/25 Transmitted Heparin Sodium PHA 03/27/25 In Process (Porcine) 10:00 Famotidine Tablet PHA 03/27/25 In Process (Pepcid Tablet) 10:00 Code Status CODE 03/27/25 Transmitted 06:25 Communication Order ORDERS 03/27/25 Transmitted 06:39 Cleanse Wound With BASSAM 03/27/25 In Process Wound Clean 10:33 * Dietary Consult CONS 03/27/25 Transmitted 14:02 Visit Coding STANDARD RES Billing Provider: LEON CALIX MD Date of Service if different f: Mar 27, 2025 Common Visit Codes: [id number] INP/OBS CARE(MOD) CHARLY HORTON Mar 27, 2025 17:57 LEON CALIX MD Apr 02, 2025 15:53
[2025-03-27] MEDS: ZINC SULFATE 220mg CAP or TAB PO ONE (18:16)
[2025-03-27] MEDS: ASCORBIC ACID 500 MG TAB PO ONE (18:16)
[2025-03-28 05:00] VITALS: BP 129/77; PULSE 95; RESP 18; TEMP 98.5; O2SAT 92
[2025-03-28 05:06] LABS: Urine Budding Yeast OCCASIONAL /hpf (None Seen); Urine Protein, UAD TRACE (Negative); Urine WBC Clumps PRESENT /hpf (None Seen)
[2025-03-28 05:20] LABS: Amphetamine Screen, Urine Pos (NEGATIVE); Barbiturate Scree,Urine Neg (NEGATIVE); Benzodiazephine Screen, Urine Neg (NEGATIVE); Cannabinoid Screen, Urine Pos (NEGATIVE); Cocaine Screen, Urine Neg (NEGATIVE); Opiate Scree,Urine Neg (NEGATIVE); Phencyclidine Screen, Urine Neg (NEGATIVE)
[2025-03-28 06:23] LABS: Hematocrit 26.2 % (41.0-53.0); Hemoglobin 9.0 g/dL (13.5-17.5); Mean Corpuscular Hemoglobin 27.9 pg (28.0-32.0); Mean Corpuscular Volume 81.4 fL (80.0-100.0); Nucleated Red Blood Cells % 0.2 %
[2025-03-28 06:31] LABS: Potassium 4.2 mmol/L (3.5-5.1)
[2025-03-28 06:32] LABS: Anion Gap 5 (5-15); Calcium 7.3 mg/dL (8.7-10.4); Carbon Dioxide 26 mmol/L (20-31); Chloride 95 mmol/L (98-107); Sodium 126 mmol/L (136-145)
[2025-03-28 06:37] LABS: BUN/Creatinine Ratio 15.3 (10.0-20.0); Blood Urea Nitrogen 17 mg/dL (9-23)
[2025-03-28 06:53] LABS: Glucose 135 mg/dL (74-106)
[2025-03-28 09:23] VITALS: BP 120/76; PULSE 87; RESP 17; TEMP 97.1; O2SAT 94
[2025-03-28] MEDS: ASCORBIC ACID 500 MG TAB PO SCH (09:38)
[2025-03-28] MEDS: ZINC SULFATE 220mg CAP or TAB PO SCH (09:38)
--- NOTE | 2025-03-28 10:52 | DVHPNRES ---
Progress Note Date Seen: Mar 28, 2025 Resident Creating Document: CHARLY HORTON RESIDENT Medical Necessity Reason Pt with a Central, PICC or Fol: No Subjective Review of Systems This is a 64-year-old male with past medical history of DM 2 came to ER with a complaint of left foot pain associated with swelling, redness, and whitish house smelling discharge one month. The foot pain was 9/10, localized, dull in nature, aggravated on hanging or during walking and mild relieved on taking rest and elevation. Denies Any recent history of trauma or MVA. Patient decided came to ER exiting getting worse day by day. Patient noncompliance with medication and not follow-up with primary care. Podiatry consulted and left dorsal foot medial and lateral I and D done on 03/23/2025. Past medical history: Dm 2 Past surgical history: Nothing contributing Family history: Nothing contributory Personal history: Marijuana and alcohol use disorder. PCP: Not selected Allergy: No known allergy Patient seen and evaluated in bedside today. Patient currently denies any acute distress except tolerable pain in left foot. Waiting for PICC line. Plan to discharge with IV antibiotic 4-6 weeks at home. Podiatry on board. Objective vital signs Vital Sign Date Time Temp Pulse Resp B/P (MAP) Pulse Ox O2 Delivery O2 Flow Rate FiO2 03/28/25 09:23 97.1 87 17 120/76 (91) 94 97.1 03/28/25 08:00 Room Air* 0 21 Total Intake and Output 03/27/25 03/27/25 03/28/25 15:00 23:00 07:00 Intake Total 500 ml 850 ml 490 ml Output Total 500 ml 400 ml 650 ml Balance 0 ml 450 ml -160 ml medications Current Medications Medications Dose Ordered Sig/Thea Route Start Time Stop Time Status Last Admin Dose Admin Cefepime HCl 50 ml @ 12.5 mls/hr Q12HR IV 03/26/25 10:00 03/28/25 09:39 12.5 MLS/HR Vancomycin HCl 0 ml @ 0 mls/hr PER PHARMACY IV 03/25/25 23:30 Diagnostic Test (Pha) 1 strip Q6HR 03/26/25 00:00 03/28/25 06:24 1 STRIP Insulin Human Regular Q6HR SC 03/26/25 00:00 03/28/25 06:25 2 UNITS Dextrose 50 ml UD PRN IV 03/25/25 23:30 Acetaminophen/ Hydrocodone Bitart 1 tab Q4HP PRN PO 03/25/25 23:30 03/28/25 09:39 1 TAB Ondansetron HCl 4 mg Q4HP PRN IV 03/25/25 23:30 Acetaminophen 650 mg Q6HP PRN PO 03/25/25 23:30 Insulin Glargine 15 units HS SC 03/26/25 22:00 03/27/25 21:58 15 UNITS Heparin Sodium (Porcine) 5,000 units Q12HR SC 03/27/25 10:00 Famotidine 20 mg DAILY PO 03/27/25 10:00 03/28/25 09:38 20 MG Ascorbic Acid 500 mg DAILY PO 03/28/25 10:00 03/28/25 09:38 500 MG Zinc Sulfate 220 mg DAILY PO 03/28/25 10:00 03/28/25 09:38 220 MG Examination Gen: 64-year-old male in mild distress Skin: Warm, dry, normal color and texture, no rash. HEENT: Normocephalic atraumatic, mucous membranes moist and pink. Neck: Cervical and supraclavicular nodes normal without enlargement, trachea is midline, thyroid gland is normal without masses. Pulmonary: Clear to auscultation and percussion bilaterally. Cardiac: Regular rate and rhythm. Abdomen: Soft, nontender, nondistended, bowel sounds present all 4 quadrants, no guarding, no rigidity, no organomegaly. Extremities: left foot covered with dry gauze bandage, right foot no acute changes and 2+ pulses bilateral lower extremity Neuro: Cranial nerves II through XII grossly intact, normal affect and speech, no focal motor deficits. laboratory and microbiology Laboratory Tests 03/28/25 05:25 Test 03/28/25 05:25 Range/Units Serum Glucose 135 H 74-106 mg/dL Microbiology Date/Time Source Procedure Growth Status 03/26/25 12:10 Foot Left Gram Stain - Final Resulted 03/26/25 12:10 Foot Left Anaerobic Culture - Preliminary Resulted 03/26/25 12:10 Foot Left Aerobic Culture - Preliminary Resulted 03/25/25 20:08 Blood Blood Culture - Preliminary NO GROWTH AFTER 48 HOURS OF INCUBATION. Resulted Problem List/Assessment/Plan Problem List/Assessment/Plan Left foot osteomyelitis Left foot sepsis Left foot cellulitis Left foot Necrotizing fascitis Left foot diabetic ulcer Left foot x-ray shows osteoporosis noted, recommended MRI. Duplex left lower extremity no finding of arterial insufficiency. MRI left foot: Diffuse cellulitis and gas gangrene of left foot, septic joint of 2nd and 3rd MTP joints with osteomyelitis. Plantar and interosseous myositis. Podiatry consulted and I and D medial and lateral left foot done on 03/26/2025. Empiric antibiotic cefepime, vancomycin and clindamycin IV antiemetic if needed Vitamin-C and zinc Blood culture x2 negative Wound culture showed Gram-positive cocci in pairs, Gram-negative rods and Gram- positive cocci in chain. Awaiting for final sensitivity. Plan to Discharge with PICC line , 4-6 weeks of IV antibiotic .. 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 More than 23 minute spent with patient. Full code status. Case discussed with Dr. Calix. Plan discussed with: Patient, Other (Nurse) My Orders My Orders Orders - CHARLY HORTON Procedure Category Date Status Time Cleanse Wound With BASSAM 03/27/25 In Process Wound Clean 10:33 * Dietary Consult CONS 03/27/25 Transmitted 14:02 Ascorbic Acid Tablet PHA 03/28/25 In Process (Vitamin C Tablet) 10:00 Zinc Sulfate PHA 03/28/25 In Process 10:00 Visit Coding STANDARD RES Billing Provider: LEON CALIX MD Date of Service if different f: Mar 28, 2025 Common Visit Codes: [id number] INP/OBS CARE(MOD) CHARLY HORTON Mar 28, 2025 10:52 LEON CALIX MD Apr 02, 2025 15:55
[2025-03-28] MEDS: VANCOMYCIN 1GM/250ML KIT 250 ML IV SCH (13:15)
[2025-03-28 13:50] VITALS: BP 104/67; PULSE 77; RESP 17; TEMP 97; O2SAT 97
[2025-03-28 17:55] VITALS: BP 151/74; PULSE 100; RESP 17; TEMP 97.1; O2SAT 96
[2025-03-28 19:30] VITALS: PULSE 100; RESP 16; O2SAT 96
[2025-03-28 21:00] VITALS: BP 157/92; PULSE 101; RESP 20; TEMP 99.4; O2SAT 96
[2025-03-29 05:00] VITALS: BP 107/84; PULSE 97; RESP 18; TEMP 98.4; O2SAT 96
[2025-03-29 06:35] LABS: Nucleated Red Blood Cells % 0.0 %
[2025-03-29 06:38] LABS: Hematocrit 28.0 % (41.0-53.0); Hemoglobin 9.4 g/dL (13.5-17.5); Mean Corpuscular Hemoglobin 27.4 pg (28.0-32.0); Mean Corpuscular Volume 81.4 fL (80.0-100.0)
[2025-03-29 06:45] LABS: Anion Gap 4 (5-15); Carbon Dioxide 30 mmol/L (20-31); Potassium 4.5 mmol/L (3.5-5.1)
[2025-03-29 06:48] LABS: Calcium 7.9 mg/dL (8.7-10.4); Chloride 94 mmol/L (98-107); Sodium 128 mmol/L (136-145)
[2025-03-29 06:51] LABS: BUN/Creatinine Ratio 11.2 (10.0-20.0); Blood Urea Nitrogen 13 mg/dL (9-23)
[2025-03-29 06:52] LABS: Glucose 143 mg/dL (74-106)
[2025-03-29 09:00] VITALS: BP 120/68; PULSE 94; RESP 20; TEMP 97.7; O2SAT 92
[2025-03-29] MEDS: LIDOCAINE 1% (LOCAL ANESTH.) PF 5ml SDV ID ONE (09:10)
[2025-03-29] MEDS: SODIUM CHLOR 0.9% PF (SALINE LOCK) 10ML VIAL/SYR IV SCH (10:00)
[2025-03-29 13:00] VITALS: BP 119/76; PULSE 88; RESP 20; TEMP 98.3; O2SAT 96
--- NOTE | 2025-03-29 14:19 | DVHPNRES ---
Progress Note Date Seen: Mar 29, 2025 Resident Creating Document: CHARLY HORTON RESIDENT Medical Necessity Reason Pt with a Central, PICC or Fol: No Subjective Review of Systems This is a 64-year-old male with past medical history of DM 2 came to ER with a complaint of left foot pain associated with swelling, redness, and whitish house smelling discharge one month. The foot pain was 9/10, localized, dull in nature, aggravated on hanging or during walking and mild relieved on taking rest and elevation. Denies Any recent history of trauma or MVA. Patient decided came to ER exiting getting worse day by day. Patient noncompliance with medication and not follow-up with primary care. Podiatry consulted and left dorsal foot medial and lateral I and D done on 03/23/2025. Past medical history: Dm 2 Past surgical history: Nothing contributing Family history: Nothing contributory Personal history: Marijuana and alcohol use disorder. PCP: Not selected Allergy: No known allergy Patient patient seen and evaluated in bedside today. Patient currently denies any acute symptoms. PICC line placed on 03/29/2020. Podiatry and foot. Waiting for culture and sensitivity and plan to discharge patient with IV antibiotic total 4-6 weeks. Objective vital signs Vital Sign Date Time Temp Pulse Resp B/P (MAP) Pulse Ox O2 Delivery O2 Flow Rate FiO2 03/29/25 13:00 98.3 88 20 119/76 (90) 96 98.3 03/29/25 08:00 Room Air* 0 21 Total Intake and Output 03/28/25 03/28/25 03/29/25 15:00 23:00 07:00 Intake Total 300 ml 700 ml 800 ml Output Total 1400 ml 880 ml Balance 300 ml -700 ml -80 ml medications Current Medications Medications Dose Ordered Sig/Thea Route Start Time Stop Time Status Last Admin Dose Admin Cefepime HCl 50 ml @ 12.5 mls/hr Q12HR IV 03/26/25 10:00 03/29/25 08:56 12.5 MLS/HR Vancomycin HCl 0 ml @ 0 mls/hr PER PHARMACY IV 03/25/25 23:30 Diagnostic Test (Pha) 1 strip Q6HR 03/26/25 00:00 03/29/25 12:03 1 STRIP Insulin Human Regular Q6HR SC 03/26/25 00:00 03/29/25 12:03 4 UNITS Dextrose 50 ml UD PRN IV 03/25/25 23:30 Acetaminophen/ Hydrocodone Bitart 1 tab Q4HP PRN PO 03/25/25 23:30 03/29/25 13:50 1 TAB Ondansetron HCl 4 mg Q4HP PRN IV 03/25/25 23:30 Acetaminophen 650 mg Q6HP PRN PO 03/25/25 23:30 Insulin Glargine 15 units HS SC 03/26/25 22:00 03/28/25 21:02 15 UNITS Heparin Sodium (Porcine) 5,000 units Q12HR SC 03/27/25 10:00 Famotidine 20 mg DAILY PO 03/27/25 10:00 03/29/25 08:57 20 MG Ascorbic Acid 500 mg DAILY PO 03/28/25 10:00 03/29/25 08:56 500 MG Zinc Sulfate 220 mg DAILY PO 03/28/25 10:00 03/29/25 08:57 220 MG Vancomycin HCl 250 ml @ 250 mls/hr DAILY@1300 IV 03/28/25 13:00 03/29/25 13:47 250 MLS/HR Sodium Chloride 10 ml QSHIFT@10,22 IV 03/29/25 10:00 03/29/25 10:00 10 ML Examination Gen: 64-year-old male in mild distress Skin: Warm, dry, normal color and texture, no rash. HEENT: Normocephalic atraumatic, mucous membranes moist and pink. Neck: Cervical and supraclavicular nodes normal without enlargement, trachea is midline, thyroid gland is normal without masses. Pulmonary: Clear to auscultation and percussion bilaterally. Cardiac: Regular rate and rhythm. No murmur Abdomen: Soft, nontender, nondistended, bowel sounds present all 4 quadrants, no guarding, no rigidity, no organomegaly. Extremities: left foot covered with dry gauze bandage, right foot no acute changes and 2+ pulses bilateral lower extremity Neuro: Cranial nerves II through XII grossly intact, normal affect and speech, no focal motor deficits. laboratory and microbiology Laboratory Tests 03/29/25 05:57 Test 03/29/25 05:57 Range/Units Serum Glucose 143 H 74-106 mg/dL Microbiology Date/Time Source Procedure Growth Status 03/26/25 12:10 Foot Left Gram Stain - Final Complete 03/26/25 12:10 Anaerobic Culture - Final Bacteroides fragilis Complete 03/26/25 12:10 Aerobic Culture - Final Providencia rettgeri Enterococcus faecalis Complete 03/25/25 20:08 Blood Blood Culture - Preliminary NO GROWTH AFTER 72 HOURS OF INCUBATION. Resulted Problem List/Assessment/Plan Problem List/Assessment/Plan Left foot osteomyelitis Left foot sepsis Left foot cellulitis Left foot Necrotizing fascitis Left foot diabetic ulcer Left foot x-ray shows osteoporosis noted, recommended MRI. Duplex left lower extremity no finding of arterial insufficiency. MRI left foot: Diffuse cellulitis and gas gangrene of left foot, septic joint of 2nd and 3rd MTP joints with osteomyelitis. Plantar and interosseous myositis. Podiatry consulted and I and D medial and lateral left foot done on 03/26/2025. Empiric antibiotic cefepime, vancomycin and clindamycin IV antiemetic if needed Vitamin-C and zinc Blood culture x2 negative Wound culture showed Gram-positive cocci in pairs, Gram-negative rods and Gram- positive cocci in chain. Awaiting for final sensitivity. PICC line placed on 03/29/2025 , plan 4-6 weeks of IV antibiotic . When culture sensitivity back. 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 More than 19 minute spent with patient. Full code status. Case discussed with Dr. Calix. Plan discussed with: Patient, Other Dietary Evaluation Review Comments: Nutrition Recommendation: 1) Roberto 1 pk BID 2) Monitor PO intake, lab values, weight trend, and I/O Expected Outcomes/Goals: Wound to improve FU 3-5 days Visit Coding STANDARD RES Billing Provider: LEON CALIX MD Date of Service if different f: Mar 29, 2025 Common Visit Codes: [id number] INP/OBS CARE(MOD) CHARLY HORTON RESIDENT Mar 29, 2025 14:19 LEON CALIX MD Apr 03, 2025 13:50
[2025-03-29] MEDS ORDERED: INSULIN LANTUS (GLARGINE) 1 /0.01ml (100units/ml) SC SCH (14:30)
[2025-03-29 17:00] VITALS: BP 127/80; PULSE 90; RESP 20; TEMP 98.1; O2SAT 97
[2025-03-29 21:00] VITALS: BP 145/83; PULSE 97; RESP 17; TEMP 98.8; O2SAT 95
[2025-03-29] MEDS: INSULIN LANTUS (GLARGINE) 1 /0.01ml (100units/ml) SC SCH (21:22)
[2025-03-30] VITALS (8 sets, daily range): BP systolic 106–163; BP diastolic 58–84; PULSE 71–105; RESP 17–18; TEMP 97.4–99.7; O2SAT 94–98
[2025-03-30 06:52] LABS: Hematocrit 26.7 % (41.0-53.0); Hemoglobin 9.1 g/dL (13.5-17.5); Mean Corpuscular Hemoglobin 27.4 pg (28.0-32.0); Mean Corpuscular Volume 80.7 fL (80.0-100.0); Nucleated Red Blood Cells % 0.1 %
[2025-03-30 06:56] LABS: Potassium 4.3 mmol/L (3.5-5.1)
[2025-03-30 06:57] LABS: Anion Gap 6 (5-15); Carbon Dioxide 27 mmol/L (20-31)
[2025-03-30 07:02] LABS: BUN/Creatinine Ratio 11.1 (10.0-20.0); Blood Urea Nitrogen 14 mg/dL (9-23); Calcium 7.9 mg/dL (8.7-10.4); Chloride 94 mmol/L (98-107); Sodium 127 mmol/L (136-145)
[2025-03-30 07:11] LABS: Glucose 147 mg/dL (74-106)
--- NOTE | 2025-03-30 10:27 | DVHPNRES ---
Progress Note Date Seen: Mar 30, 2025 Resident Creating Document: LUIS RAMÍREZ RESIDENT Medical Necessity Reason Pt with a Central, PICC or Fol: No Subjective Review of Systems This is a 64-year-old male with past medical history of DM 2 came to ER with a complaint of left foot pain associated with swelling, redness, and whitish house smelling discharge one month. The foot pain was 9/10, localized, dull in nature, aggravated on hanging or during walking and mild relieved on taking rest and elevation. Denies Any recent history of trauma or MVA. Patient decided came to ER exiting getting worse day by day. Patient noncompliance with medication and not follow-up with primary care. Podiatry consulted and left dorsal foot medial and lateral I and D done on 03/23/2025. Past medical history: Dm 2 Past surgical history: Nothing contributing Family history: Nothing contributory Personal history: Marijuana and alcohol use disorder. PCP: Not selected Allergy: No known allergy Patient patient seen and evaluated in bedside today. Patient currently denies any acute symptoms. Wound culture showed Bacteroides, Providencia and Enterococcus faecalis, sensitive to ertapenem and linezolid. social worker aide was consulted to arrange SNF for continuation of IV antibiotics ertapenem 1 g daily for 6 weeks. He is not eligible for home health for continuation of IV antibiotic as history of drug abuse and UDS is positive for methamphetamine. Objective vital signs Vital Sign Date Time Temp Pulse Resp B/P (MAP) Pulse Ox O2 Delivery O2 Flow Rate FiO2 03/30/25 08:59 98.1 102 18 110/70 (83) 95 98.1 03/29/25 20:00 Room Air* 0 21 Total Intake and Output 03/29/25 03/29/25 03/30/25 15:00 23:00 07:00 Intake Total 300 ml 500 ml 450 ml Output Total 900 ml 800 ml Balance 300 ml -400 ml -350 ml medications Current Medications Medications Dose Ordered Sig/Thea Route Start Time Stop Time Status Last Admin Dose Admin Diagnostic Test (Pha) 1 strip Q6HR 03/26/25 00:00 03/30/25 05:17 1 STRIP Insulin Human Regular Q6HR SC 03/26/25 00:00 03/30/25 05:16 2 UNITS Dextrose 50 ml UD PRN IV 03/25/25 23:30 Acetaminophen/ Hydrocodone Bitart 1 tab Q4HP PRN PO 03/25/25 23:30 03/30/25 09:44 1 TAB Ondansetron HCl 4 mg Q4HP PRN IV 03/25/25 23:30 Acetaminophen 650 mg Q6HP PRN PO 03/25/25 23:30 Heparin Sodium (Porcine) 5,000 units Q12HR SC 03/27/25 10:00 Famotidine 20 mg DAILY PO 03/27/25 10:00 03/30/25 09:44 20 MG Ascorbic Acid 500 mg DAILY PO 03/28/25 10:00 03/30/25 09:44 500 MG Zinc Sulfate 220 mg DAILY PO 03/28/25 10:00 03/30/25 09:44 220 MG Sodium Chloride 10 ml QSHIFT@10,22 IV 03/29/25 10:00 03/30/25 09:48 10 ML Insulin Glargine 20 units HS@2200 SC 03/29/25 22:00 03/29/25 21:22 20 UNITS Ceftriaxone Sodium 50 ml @ 100 mls/hr DAILY@09 IV 03/30/25 09:00 03/30/25 09:43 100 MLS/HR Linezolid 600 mg BID PO 03/30/25 10:00 Examination Physical examination: General Appearance: Alert, Oriented X3, Cooperative, No acute distress HEENT: Atraumatic, PERRLA, EOMI, Mucous membrane moist/pink Respiratory: Clear to auscultation, Normal air movement Cardiovascular: Regular rate, Normal S1, Normal S2, No murmurs, no chest wall tenderness Abdominal: Normal bowel sounds, Soft, No tenderness, No hepatospenomegaly, No masses Extremities: Left foot covered with surgical dressing, No cyanosis, No edema, Normal pulses, No tenderness/swelling Skin: No rashes, No breakdown, No significant lesion Neuro: Normal speech, Strength at 5/5 X4 ext, Normal tone, Sensation intact, Cranial nerves 3-12 NL, Reflexes 2+ Psych/Mental Status: Mental status NL, Mood NL laboratory and microbiology Laboratory Tests 03/30/25 06:02 Test 03/30/25 06:02 Range/Units Serum Glucose 147 H 74-106 mg/dL Microbiology Date/Time Source Procedure Growth Status 03/26/25 12:10 Foot Left Gram Stain - Final Complete 03/26/25 12:10 Anaerobic Culture - Final Bacteroides fragilis Complete 03/26/25 12:10 Aerobic Culture - Final Providencia rettgeri Enterococcus faecalis Complete 03/25/25 20:08 Blood Blood Culture - Preliminary NO GROWTH AFTER 72 HOURS OF INCUBATION. Resulted Labs and/or images reviewed: Labs reviewed by me, Image(s) reviewed by me Problem List/Assessment/Plan Problem List/Assessment/Plan Assessment and plan: Left foot osteomyelitis Left foot cellulitis Left foot Necrotizing fascitis Left foot diabetic ulcer Sepsis due to above Left foot x-ray shows osteoporosis noted, recommended MRI. Duplex left lower extremity no finding of arterial insufficiency. MRI left foot: Diffuse cellulitis and gas gangrene of left foot, septic joint of 2nd and 3rd MTP joints with osteomyelitis. Plantar and interosseous myositis. Podiatry consulted and I and D medial and lateral left foot done on 03/26/2025. 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 More than 19 minute spent with patient. Full code status. Case discussed with Dr. Calix. Plan discussed with: Patient, Other (RN) My Orders My Orders Orders - LUIS RAMÍREZ RESIDENT Procedure Category Date Status Time Ss Consult To Arrange BASSAM 03/29/25 In Process Home Iv 16:25 Ceftriaxone 1gm/50ml PHA 03/30/25 In Process (Rocephin) 09:00 Linezolid Tablet PHA 12/27/25 In Process (Zyvox Tablet) 10:00 Dietary Evaluation Review Comments: Nutrition Recommendation: 1) Roberto 1 pk BID 2) Monitor PO intake, lab values, weight trend, and I/O Expected Outcomes/Goals: Wound to improve FU 3-5 days Visit Coding STANDARD RES Billing Provider: LUIS RAMÍREZ Date of Service if different f: Mar 30, 2025 Common Visit Codes: [id number] INP/OBS CARE(MOD) LUIS RAMÍREZ RESIDENT Mar 30, 2025 10:27 LEON CALIX MD Apr 03, 2025 14:15
[2025-03-30] MEDS: LINEZOLID 600MG TABLET PO SCH (12:28)
[2025-03-30] MEDS: ERTAPENEM SOD INJ 1 GM in SODIUM CHL 0.9% 50 ML IV ONE (15:24)
[2025-03-31] VITALS (7 sets, daily range): BP systolic 103–144; BP diastolic 63–82; PULSE 71–96; RESP 14–18; TEMP 97.7–99.6; O2SAT 96–98
[2025-03-31 07:56] LABS: Nucleated Red Blood Cells % 0.1 %
[2025-03-31 08:00] LABS: Hematocrit 24.1 % (41.0-53.0); Hemoglobin 8.2 g/dL (13.5-17.5); Mean Corpuscular Hemoglobin 27.4 pg (28.0-32.0); Mean Corpuscular Volume 80.7 fL (80.0-100.0)
[2025-03-31] MEDS: ERTAPENEM SOD INJ 1 GM in SODIUM CHL 0.9% 50 ML IV SCH (10:00)
--- NOTE | 2025-03-31 10:52 | DVHPNRES ---
Progress Note Date Seen: Mar 31, 2025 Resident Creating Document: CHARLY HORTON RESIDENT Medical Necessity Reason Pt with a Central, PICC or Fol: No Subjective Review of Systems This is a 64-year-old male with past medical history of DM 2 came to ER with a complaint of left foot pain associated with swelling, redness, and whitish house smelling discharge one month. The foot pain was 9/10, localized, dull in nature, aggravated on hanging or during walking and mild relieved on taking rest and elevation. Denies Any recent history of trauma or MVA. Patient decided came to ER exiting getting worse day by day. Patient noncompliance with medication and not follow-up with primary care. Podiatry consulted and left dorsal foot medial and lateral I and D done on 03/23/2025. Past medical history: Dm 2 Past surgical history: Nothing contributing Family history: Nothing contributory Personal history: Marijuana and alcohol use disorder. PCP: Not selected Allergy: No known allergy Seen and evaluated in bedside today. Patient denies any acute complaint and his pain is improving compared to admission. Consult came back which is sensitive to ertapenem and linezolid. Plan, placement SNF to continue IV antibiotic for 6 weeks. optical worker on board, pending placement. Patient not eligible [employer] due to history of drug abuse and UDS positive for methamphetamine. Left foot covered with dry gauze bandage. Objective vital signs Vital Sign Date Time Temp Pulse Resp B/P (MAP) Pulse Ox O2 Delivery O2 Flow Rate FiO2 03/31/25 08:56 99.0 71 14 126/77 (93) 98 99.0 03/30/25 20:00 Room Air* 0 21 Total Intake and Output 03/30/25 03/30/25 03/31/25 15:00 23:00 07:00 Intake Total 995 ml 700 ml Output Total 1201 ml 600 ml Balance -206 ml 100 ml medications Current Medications Medications Dose Ordered Sig/Thea Route Start Time Stop Time Status Last Admin Dose Admin Diagnostic Test (Pha) 1 strip Q6HR 03/26/25 00:00 03/31/25 05:15 1 STRIP Insulin Human Regular Q6HR SC 03/26/25 00:00 03/31/25 05:15 2 UNITS Dextrose 50 ml UD PRN IV 03/25/25 23:30 Acetaminophen/ Hydrocodone Bitart 1 tab Q4HP PRN PO 03/25/25 23:30 03/31/25 05:26 1 TAB Ondansetron HCl 4 mg Q4HP PRN IV 03/25/25 23:30 Acetaminophen 650 mg Q6HP PRN PO 03/25/25 23:30 Heparin Sodium (Porcine) 5,000 units Q12HR SC 03/27/25 10:00 03/30/25 21:49 5,000 UNITS Famotidine 20 mg DAILY PO 03/27/25 10:00 03/30/25 09:44 20 MG Ascorbic Acid 500 mg DAILY PO 03/28/25 10:00 03/30/25 09:44 500 MG Zinc Sulfate 220 mg DAILY PO 03/28/25 10:00 03/30/25 09:44 220 MG Sodium Chloride 10 ml QSHIFT@10,22 IV 03/29/25 10:00 03/30/25 21:30 10 ML Insulin Glargine 20 units HS@2200 SC 03/29/25 22:00 03/30/25 21:48 20 UNITS Linezolid 600 mg BID PO 03/30/25 10:00 03/30/25 21:30 600 MG Ertapenem 1 gm/ Sodium Chloride 50 ml @ 100 mls/hr DAILY IV 03/31/25 10:00 Examination Patient currently lying on bed, General Appearance: Alert, Oriented X3, Cooperative, No acute distress HEENT: Atraumatic, PERRLA, EOMI, Mucous membrane moist/pink Respiratory: Clear to auscultation, Normal air movement Cardiovascular: Regular rate, Normal S1, Normal S2, No murmurs, no chest wall tenderness Abdominal: Normal bowel sounds, Soft, No tenderness, No hepatospenomegaly, No masses Extremities: Left foot covered with dry bandage, No cyanosis, No edema, Normal pulses, No tenderness/swelling Skin: No rashes, No breakdown, No significant lesion Neuro: Normal speech, Strength at 5/5 X4 ext, Normal tone, Sensation intact, Cranial nerves 3-12 NL, Reflexes 2+ Psych/Mental Status: Mental status NL, Mood NL laboratory and microbiology Laboratory Tests 03/31/25 07:00 03/30/25 06:02 Test 03/30/25 06:02 Range/Units Serum Glucose 147 H 74-106 mg/dL Microbiology Date/Time Source Procedure Growth Status 12/23/25 12:10 Foot Left Gram Stain - Final Complete 03/26/25 12:10 Anaerobic Culture - Final Bacteroides fragilis Complete 03/26/25 12:10 Aerobic Culture - Final Providencia rettgeri Enterococcus faecalis Complete 03/25/25 20:08 Blood Blood Culture - Final NO GROWTH AFTER 5 DAYS OF INCUBATION. Complete Problem List/Assessment/Plan Problem List/Assessment/Plan Left foot osteomyelitis Left foot cellulitis Left foot Necrotizing fascitis Left foot diabetic ulcer Sepsis due to above Left foot x-ray shows osteoporosis noted, recommended MRI. Duplex left lower extremity no finding of arterial insufficiency. MRI left foot: Diffuse cellulitis and gas gangrene of left foot, septic joint of 2nd and 3rd MTP joints with osteomyelitis. Plantar and interosseous myositis. Podiatry consulted and I and D medial and lateral left foot done on 03/26/2025. 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 Diet: Carbohydrate Consistent DVT prophylaxis: Heparin GI prophylaxis: Famotidine Goals of care discussions. More than 23 minute spent with patient. Full code status. Spoke to NOK brother Saroj) over the phone and updated current medical management and verbally agreed vertebral discussed. Case discussed with Dr. Calix. Plan discussed with: Patient, Other (Nurse, NOK-brother(Santos)) My Orders My Orders Orders - CHARLY HORTON RESIDENT Procedure Category Date Status Time Ergocalciferol PHA 03/31/25 Verified (Vitamin D 50,000 10:45 Dietary Evaluation Review Comments: Nutrition Recommendation: 1) Roberto 1 pk BID 2) Monitor PO intake, lab values, weight trend, and I/O Expected Outcomes/Goals: Wound to improve FU 3-5 days Visit Coding STANDARD RES Billing Provider: LEON CALIX MD Date of Service if different f: Mar 31, 2025 Common Visit Codes: [id number] INP/OBS CARE(MOD) CHARLY HORTON RESIDENT Mar 31, 2025 10:52 LEON CALIX MD Apr 03, 2025 14:21
[2025-03-31] MEDS: ERGOCALCIFEROL 50,000 UNIT(1.25MG) CAP PO SCH (11:05)
[2025-04-01 00:57] VITALS: BP 122/75; PULSE 79; RESP 17; TEMP 98.6; O2SAT 96
[2025-04-01 05:00] VITALS: BP 132/77; PULSE 82; RESP 18; TEMP 98.2; O2SAT 97
[2025-04-01 07:17] LABS: Hematocrit 26.8 % (41.0-53.0); Hemoglobin 9.0 g/dL (13.5-17.5); Mean Corpuscular Hemoglobin 27.2 pg (28.0-32.0); Mean Corpuscular Volume 80.7 fL (80.0-100.0); Nucleated Red Blood Cells % 0.1 %
[2025-04-01 07:27] LABS: Anion Gap 4 (5-15); Carbon Dioxide 31 mmol/L (20-31); Potassium 4.3 mmol/L (3.5-5.1)
[2025-04-01 07:33] LABS: BUN/Creatinine Ratio 10.7 (10.0-20.0); Blood Urea Nitrogen 13 mg/dL (9-23); Glucose 95 mg/dL (74-106)
[2025-04-01 07:40] LABS: Calcium 8.3 mg/dL (8.7-10.4); Chloride 96 mmol/L (98-107); Sodium 131 mmol/L (136-145)
[2025-04-01 08:30] VITALS: BP 122/60; PULSE 79; RESP 18; TEMP 97.8; O2SAT 98
[2025-04-01 12:25] VITALS: BP 105/62; PULSE 77; RESP 18; TEMP 97.7; O2SAT 97
--- NOTE | 2025-04-01 14:49 | DVHPNRES ---
Progress Note Date Seen: Apr 01, 2025 Resident Creating Document: CHARLY HORTON RESIDENT Medical Necessity Reason Pt with a Central, PICC or Fol: No Subjective Review of Systems This is a 64-year-old male with past medical history of DM 2 came to ER with a complaint of left foot pain associated with swelling, redness, and whitish house smelling discharge one month. The foot pain was 9/10, localized, dull in nature, aggravated on hanging or during walking and mild relieved on taking rest and elevation. Denies Any recent history of trauma or MVA. Patient decided came to ER exiting getting worse day by day. Patient noncompliance with medication and not follow-up with primary care. Podiatry consulted and left dorsal foot medial and lateral I and D done on 03/23/2025. Past medical history: Dm 2 Past surgical history: Nothing contributing Family history: Nothing contributory Personal history: Marijuana and alcohol use disorder. PCP: Not selected Allergy: No known allergy Patient seen and evaluated in bedside today. Patient denies acute distress. Podiatry on board. Waiting placement SNF to continue IV antibiotic until 05/11/2025. Objective vital signs Vital Sign Date Time Temp Pulse Resp B/P (MAP) Pulse Ox O2 Delivery O2 Flow Rate FiO2 04/01/25 12: 97.7 77 18 105/62 (76) 97 97.7 03/31/25 20:00 Room Air* 0 21 Total Intake and Output 03/31/25 03/31/25 04/01/25 15:00 23:00 07:00 Intake Total 1100 ml 600 ml Balance 1100 ml 600 ml medications Current Medications Medications Dose Ordered Sig/Htea Route Start Time Stop Time Status Last Admin Dose Admin Diagnostic Test (Pha) 1 strip Q6HR 03/26/25 00:00 04/01/25 12:00 1 STRIP Insulin Human Regular Q6HR SC 03/26/25 00:00 04/01/25 12:00 3 UNITS Dextrose 50 ml UD PRN IV 03/25/25 23:30 Acetaminophen/ Hydrocodone Bitart 1 tab Q4HP PRN PO 03/25/25 23:30 04/01/25 10:38 1 TAB Ondansetron HCl 4 mg Q4HP PRN IV 03/25/25 23:30 Acetaminophen 650 mg Q6HP PRN PO 03/25/25 23:30 Heparin Sodium (Porcine) 5,000 units Q12HR SC 03/27/25 10:00 04/01/25 10:00 5,000 UNITS Famotidine 20 mg DAILY PO 03/27/25 10:00 04/01/25 10:00 20 MG Ascorbic Acid 500 mg DAILY PO 03/28/25 10:00 04/01/25 10:00 500 MG Zinc Sulfate 220 mg DAILY PO 03/28/25 10:00 04/01/25 10:00 220 MG Sodium Chloride 10 ml QSHIFT@10,22 IV 03/29/25 10:00 04/01/25 10:00 10 ML Insulin Glargine 20 units HS@2200 SC 03/29/25 22:00 03/31/25 22:00 20 UNITS Linezolid 600 mg BID PO 03/30/25 10:00 04/01/25 10:00 600 MG Ertapenem 1 gm/ Sodium Chloride 50 ml @ 100 mls/hr DAILY IV 03/31/25 10:00 Ergocalciferol 50,000 unit Q7D PO 03/31/25 10:45 03/31/25 11:05 50,000 UNIT Examination Patient currently lying on bed General Appearance: Alert, Oriented X3, Cooperative, No acute distress HEENT: Atraumatic, PERRLA, EOMI, Mucous membrane moist/pink Respiratory: Clear to auscultation, Normal air movement Cardiovascular: Regular rate, Normal S1, Normal S2, No murmurs, no chest wall tenderness Abdominal: Normal bowel sounds, Soft, No tenderness, No hepatospenomegaly, No masses Extremities: Left foot covered with dry bandage, No cyanosis, No edema, Normal pulses, No tenderness/swelling Skin: No rashes, No breakdown, No significant lesion Neuro: Normal speech, Strength at 5/5 X4 ext, Normal tone, Sensation intact, Cranial nerves 3-12 NL Psych/Mental Status: Mental status NL, Mood NL laboratory and microbiology Laboratory Tests 04/01/25 06:35 Test 04/01/25 06:35 Range/Units Serum Glucose 95 74-106 mg/dL Microbiology Date/Time Source Procedure Growth Status 03/26/25 12:10 Foot Left Gram Stain - Final Complete 03/26/25 12:10 Anaerobic Culture - Final Bacteroides fragilis Complete 03/26/25 12:10 Aerobic Culture - Final Providencia rettgeri Enterococcus faecalis Complete 03/25/25 20:08 Blood Blood Culture - Final NO GROWTH AFTER 5 DAYS OF INCUBATION. Complete Problem List/Assessment/Plan Problem List/Assessment/Plan Left foot osteomyelitis Left foot cellulitis Left foot Necrotizing fascitis Left foot diabetic ulcer Sepsis due to above Left foot x-ray shows osteoporosis noted, recommended MRI. Duplex left lower extremity no finding of arterial insufficiency. MRI left foot: Diffuse cellulitis and gas gangrene of left foot, septic joint of 2nd and 3rd MTP joints with osteomyelitis. Plantar and interosseous myositis. Podiatry consulted and I and D medial and lateral left foot done on 03/26/2025. s/p cefepime, vancomycin and clindamycin IV antiemetic if needed Vitamin-C and zinc Blood culture x2 negative Wound culture showed Bacteroides,providencia and Enterococcus faecalis sensitive to ceftriaxone and linezolid PICC line placed on 03/29/2025 IV antibiotic ertapenem until 05/11/2024 and oral Zyvox same duration. 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 Diet: Carbohydrate Consistent DVT prophylaxis: Heparin GI prophylaxis: Famotidine Goals of care discussions. More than 19 minute spent with patient. Full code status. Awaiting Placement to SNF. Case discussed with Dr. Calix. Plan discussed with: Patient, Other (Nurse) Dietary Evaluation Review Comments: Nutrition Recommendation: 1) Roberto 1 pk BID 2) Monitor PO intake, lab values, weight trend, and I/O Expected Outcomes/Goals: Wound to improve FU 3-5 days Visit Coding STANDARD RES Billing Provider: LEON CALIX MD Date of Service if different f: Apr 01, 2025 Common Visit Codes: [id number] INP/OBS CARE(MOD) CHARLY HORTON RESIDENT Apr 01, 2025 14:49 LEON CALIX MD Apr 03, 2025 14:31
[2025-04-01 17:02] VITALS: BP 110/69; PULSE 77; RESP 18; TEMP 97.6; O2SAT 97
[2025-04-01 21:00] VITALS: BP 101/61; PULSE 81; RESP 14; TEMP 98.7; O2SAT 96
[2025-04-02] VITALS (7 sets, daily range): BP systolic 97–150; BP diastolic 53–87; PULSE 74–97; RESP 14–20; TEMP 97.6–98.9; O2SAT 95–97
[2025-04-02 06:14] LABS: Hemoglobin 8.6 g/dL (13.5-17.5)
[2025-04-02 06:17] LABS: Hematocrit 25.8 % (41.0-53.0); Mean Corpuscular Hemoglobin 27.1 pg (28.0-32.0); Mean Corpuscular Volume 81.1 fL (80.0-100.0); Nucleated Red Blood Cells % 0.1 %
[2025-04-02 06:20] LABS: Potassium 4.5 mmol/L (3.5-5.1)
[2025-04-02 06:21] LABS: Anion Gap 5 (5-15); Carbon Dioxide 31 mmol/L (20-31)
[2025-04-02 06:24] LABS: Calcium 8.3 mg/dL (8.7-10.4); Chloride 96 mmol/L (98-107); Sodium 132 mmol/L (136-145)
[2025-04-02 06:26] LABS: BUN/Creatinine Ratio 9.8 (10.0-20.0); Blood Urea Nitrogen 11 mg/dL (9-23)
[2025-04-02 06:27] LABS: Glucose 123 mg/dL (74-106)
--- NOTE | 2025-04-02 13:31 | DVHDSRES ---
Discharge Summary Date of Admission Resident Creating Document: CHARLY HORTON RESIDENT Mar 25, 2025 at 23:26 Date of Discharge: Apr 02, 2025 Labs/Diagnostic Data: Laboratory Results Test 04/02/25 12:22 04/02/25 05:10 03/28/25 05:25 03/28/25 04:00 POC Glucose 206 mg/dl (70-106) White Blood Count 3.7 10^3/uL (4.4-10.8) Red Blood Count 3.18 10^6/uL (4.5-5.90) Hemoglobin 8.6 g/dL (13.5-17.5) Hematocrit 25.8 % (41.0-53.0) Mean Corpuscular Volume 81.1 fL (80.0-100.0) Mean Corpuscular Hemoglobin 27.1 pg (28.0-32.0) Mean Corpuscular Hemoglobin Concent 33.4 g/dL (32.0-36.0) Red Cell Distribution Width 15.3 % (11.8-14.3) Platelet Count 193 10^3/uL (140-450) Mean Platelet Volume 7.0 fL (6.9-10.8) Neutrophils (%) (Auto) 54.2 % (37.0-80.0) Lymphocytes (%) (Auto) 34.1 % (10.0-50.0) Monocytes (%) (Auto) 10.3 % (0.0-12.0) Eosinophils (%) (Auto) 0.8 % (0.0-7.0) Basophils (%) (Auto) 0.6 % (0.0-2.0) Neutrophils # (Auto) 2.0 10 ^3/uL (1.6-8.6) Lymphocytes # (Auto) 1.3 10 ^3/uL (0.4-5.4) Monocytes # (Auto) 0.4 10 ^3/uL (0-1.3) Eosinophils # (Auto) 0 10 ^3/uL (0-0.8) Basophils # (Auto) 0 10 ^3/uL (0-0.2) Nucleated Red Blood Cells 0.1 % Sodium Level 132 mmol/L (136-145) Potassium Level 4.5 mmol/L (3.5-5.1) Chloride Level 96 mmol/L (98-107) Carbon Dioxide Level 31 mmol/L (20-31) Anion Gap 5 (5-15) Blood Urea Nitrogen 11 mg/dL (9-23) Creatinine 1.12 mg/dL (0.700-1.30) Glomerular Filtration Rate Calc 74 mL/min (>90) BUN/Creatinine Ratio 9.8 (10.0-20.0) Serum Glucose 123 mg/dL (74-106) Calcium Level 8.3 mg/dL (8.7-10.4) Random Vancomycin Level 10.9 ug/mL (5-10) Urine Color Yellow (Yellow) Urine Clarity Turbid (Clear) Urine pH 5.5 (5.0-9.0) Urine Specific [place] 1.012 (1.001-1.035) Urine Protein Trace (Negative) Urine Ketones Negative (Negative) Urine Blood 3+ /uL (Negative) Urine Nitrite Negative (Negative) Urine Bilirubin Negative (Negative) Urine Urobilinogen Normal mg/dL (Negative) Urine Leukocyte Esterase 3+ /uL (Negative) Urine RBC 12 /hpf (0 - 3) Urine WBC Clumps Present /hpf (None Seen) Urine Microscopic WBC 46 /HPF (0-3) Urine Squamous Epithelial Cells Few /hpf (<5) Urine Bacteria None seen /hpf (None Seen) Urine Yeast (Budding) Occasional /hpf (None Urine Osmolality 283 mOsm/kg Urine Sodium 11 mmol/L (40-220) Urine Glucose Trace mg/dL (Normal) Urine Opiates Screen Neg (NEGATIVE) Urine Fentanyl Screen Neg (NEGATIVE) Urine Barbiturates Screen Neg (NEGATIVE) Urine Phencyclidine Screen Neg (NEGATIVE) Urine Amphetamines Screen Pos (NEGATIVE) Urine Benzodiazepines Screen Neg (NEGATIVE) Urine Cocaine Screen Neg (NEGATIVE) Urine Cannabinoids Screen Pos (NEGATIVE) Test 03/27/25 04:12 03/26/25 06:25 03/25/25 19:54 Total Bilirubin 0.8 mg/dL (0.2-1.0) Aspartate Amino Transferase (AST) 32 U/L (13-40) Alanine Aminotransferase (ALT) 20 U/L (7-40) Alkaline Phosphatase 173 U/L (46-116) Total Protein 6.3 g/dL (5.7-8.2) Albumin 2.7 g/dL (3.2-4.8) Prothrombin Time 13.3 sec (9.3-11.8) Prothrombin Time INR 1.29 (0.9-1.15) Activated Partial Thromboplast Time 38.1 SEC (24.5-34.5) Hemoglobin A1c 8.6 % A1C (<5.7) Serum Osmolality 260 mOsm/kg (278-298) B-Type Natriuretic Peptide 46.26 pg/mL (0-100) Vitamin B12 Level 1321 pg/mL (211-911) Vitamin D 25-Hydroxy 22.4 ng/mL (30.0-100) Thyroid Stimulating Hormone (TSH) 3.56 uIU/mL (0.55-4.78) Lactic Acid Level 1.2 mmol/L (0.4-2.0) Other Laboratory Tests 04/02/25 05:10 Brief Hx & Hospital Course: This is a 64-year-old male with past medical history of DM 2 came to ER with a complaint of left foot pain associated with swelling, redness, and whitish house smelling discharge one month. The foot pain was 9/10, localized, dull in nature, aggravated on hanging or during walking and mild relieved on taking rest and elevation. Denies Any recent history of trauma or MVA. Patient decided came to ER exiting getting worse day by day. Patient noncompliance with medication and not follow-up with primary care. Podiatry consulted and left dorsal foot medial and lateral I and D done on 03/23/2025. Past medical history: Dm 2 Past surgical history: Nothing contributing Family history: Nothing contributory Personal history: Marijuana and alcohol use disorder. PCP: Not selected Allergy: No known allergy Hospital course: Patient admitted Osteomyelitis left foot associated with necrotizing fascitis. Left foot x-ray shows osteoporosis noted. Duplex left lower extremity no finding of arterial insufficiency. MRI left foot: Diffuse cellulitis and gas gangrene of left foot, septic joint of 2nd and 3rd MTP joints with osteomyelitis. Plantar and interosseous myositis. Arterial duplex left lower extremity showed no findings arterial insufficiency, elevated velocities and monophasic waves are noted in the distal popliteal artery anterior tibial artery and posterior tibial artery and dorsalis pedis. Podiatry consulted and I and D medial and lateral left foot done on 03/26/2025. s/p cefepime, vancomycin and clindamycin. Wound culture showed Bacteroides,providencia and Enterococcus faecalis . Blood culture x2 negative. Started on ertapenem IV antibiotic and Zyvox p.o. antibiotic. Patient got maximum benefit during inpatient treatment, during inpatient stay patient treated both acute and chronic medical condition. Patient patient transferred to SNF continue IV antibiotic Ertapenem and oral Zyvox until 05/11/2025. PICC line placed on 03/29/2025. Need to monitor labs CBC, CMP, CRP, [place] [id number], patient denies any fever, cough, SOB, chest pain, abdominal pain, dysuria or any other acute distress. Patient is hemodynamically stable for discharge. Patient has received maximum benefit from inpatient treatment. Time was given to answer patient's questions and concerns in layman terms and explained by RN. Patient verbalized understanding and agreed with treatment and follow-up. Patient was recommended to return to ER if he experiences any worsening symptoms not limited to current symptoms. Follow-up with PCP and outpatient podiatry clinic within 2 weeks after discharge. Physical examination; Constitutional: No: Fever, Chills, Sweats, Weakness, Malaise, Other Eyes: No: Pain, Vision change, Conjunctivae inflammation, Eyelid inflammation, Other, Redness ENT: No: Ear pain, Ear discharge, Nose pain, Nose discharge, Nose congestion, Mouth pain, Mouth swelling, Throat pain, Throat swelling, Other Respiratory: Shortness of breath; No: Cough, Dry, SOB with excertion, Wheezing, Hemoptysis, Pleuritic Pain, Sputum, Wheezing, Other Cardiovascular: No: Chest Pain, Palpitations, Orthopnea, Paroxysmal Noc. Dyspnea, Edema, Lt Headedness, Other Gastrointestinal: No: Nausea, Vomiting, Abdominal Pain, Diarrhea, Constipation, Melena, Hematochezia, Other Genitourinary: No Dysuria, No Frequency, No Incontinence, No Hematuria, No Retention, No Other Musculoskeletal: No: other, neck pain, shoulder pain, left foot covered with dry bandage Skin: No: Rash, Lesions, Jaundice, Bruising, Other Neurological: No: Weakness, Numbness, Incoordination, Change in speech, Confusion, Seizures, Other More than 23 minute spent with patient. Case discussed with patient, nurse, Dr. Wiseman.. Operations or Procedures ORDERING PHYSICIAN: KADEEM HARMAN MD PROCEDURE(s): LFOOT - L FOOT 3 VIEW XRAY REASON: LEFT FOOT WOUND ORDER NUMBER(s): [id number], ACCESSION NUMBER(s): [id number] CLINICAL INDICATION: LEFT FOOT WOUND TECHNIQUE: 3 radiographic views of the left foot were obtained. COMPARISON: None FINDINGS/IMPRESSION: G areas of osteoporosis are noted. There are no radiopaque foreign bodies. Recommend MRI to exclude osteomyelitis ATED BY: FRANCISCO ELIZABETH Jr., DO DICTATED DATE/TIME: 03/25/252114 ORDERING PHYSICIAN: KADEEM HARMAN MD PROCEDURE(s): LLEAD - Lt Low Ext Art Duplex REASON: R/O PAD VS ISCHEMIA, LEFT FOOT WOUND ORDER NUMBER(s): [id number], ACCESSION NUMBER(s): [id number] BILATERAL Lower Extremity Arterial Duplex Date: 03/25/2025 08:50 PM CLINICAL HISTORY: R/O PAD VS ISCHEMIA, LEFT FOOT WOUND COMPARISON: None TECHNIQUE: Duplex Doppler evaluation including color Doppler and spectral/pulsed waveform analysis of the lower extremity arteries was performed. Finding: LEFT: Peak systolic velocities are as follows: [employer] 71 cm/s triphasic waveform Deep femoral 59 cm/s triphasic waveform SFA proximal 74 cm/s triphasic waveforms SFA mid-portion 88 cm/s triphasic waveform SFA distal 67cm/s triphasic waveform Popliteal Proximal popliteal artery 87 cm/sec triphasic waveform Distal popliteal artery: 130 cm/sec triphasic waveform Posterior tibial 120 cm/s monophasic waveform Anterior tibial 173 cm/s monophasic waveform Dorsalis pedis 142 cm/s monophasic waveform The waveforms are monophasic and triphasic waveform. REFERENCE VALUES, [facility] ([facility]) vascular Imaging Lab Criteria: Peak systolic velocity ranges (in cm/sec) are as follows: <150 cm/s - <20 % stenosis 150-200 cm/s - 20-49% stenosis 200-300 cm/s - 50-75% stenosis >300 cm/s -> 75% stenosis IMPRESSION: 1. There is no findings arterial insufficiency in the left lower extremity proximal of the popliteal artery. 2. Elevated velocities and monophasic waveform are noted in the distal popliteal artery anterior tibial artery posterior tibial artery and dorsalis pedis. ATED BY: FRANCISCO ELIZABETH Jr., DO DICTATED DATE/TIME: 03/25/252128 ORDERING PHYSICIAN: LUIS RAMÍREZ PROCEDURE(s): CXRP - CHEST PORTABLE REASON: sob ORDER NUMBER(s): [id number], ACCESSION NUMBER(s): [id number] CHEST RADIOGRAPH Indication: sob Technique: Single frontal view of the chest was obtained COMPARISON: None FINDINGS: Lines and Tubes: None Lungs: Mild diffuse increased interstitial prominence. Pleura: No effusion.No pneumothorax. Cardiomediastinal contours: Unremarkable Bones: Unremarkable IMPRESSION: Possible mild pulmonary vascular congestion versus viral pneumonitis. ATED BY: BARON KLEIN MD DICTATED DATE/TIME: 03/26/25834 ORDERING PHYSICIAN: NEYMAR FUNES PROCEDURE(s): LFTMR - MRI L FOOT WO CONTRAST REASON: Rule out osteomyelitis ORDER NUMBER(s): [id number], ACCESSION NUMBER(s): [id number] EXAM: MRI MRI L FOOT WO CONTRAST HISTORY: Rule out osteomyelitis COMPARISON: None TECHNIQUE: Multiplanar, multisequence MRI was performed. FINDINGS: There is dorsal subluxation /dislocation of the 2nd MTP joint with diffuse bone marrow edema noted in the 2nd metatarsal head and neck and throughout the 2nd metatarsal proximal and middle phalanges. The 2nd distal phalanx can not be evaluated due to susceptibility artifact from a retained metallic object. Small 3rd MTP joint effusion. Bone marrow edema is noted in the 3rd proximal phalanx with erosion of the plantar basal cortices compatible with acute osteomyelitis. There is dorsal subluxation of the 3rd MTP joint. There is bone marrow edema in the 3rd metatarsal head. Small 3rd MTP joint effusion. Diffuse soft tissue swelling noted on dorsum of the foot and over toes. Numerous subcentimeter foci are seen dorsally and in the plantar soft tissues. Diffuse plantar and interosseous musculature edema noted. No drainable fluid collection is identified. IMPRESSION: 1. Diffuse cellulitis and gas gangrene of the foot. 2. Septic joint of the 2nd and 3rd MTP joints with osteomyelitis of the corresponding metatarsal heads phalanges. 3. Plantar and interosseous myositis. 4. No drainable fluid collection. 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 CBC, BMP, CRP weekly follow-up with primary care Daily wound care No Active Prescriptions or Reported Meds Discharge Statement: "Patient was advised to return to the ER or call 911 if any headaches, dizziness, shortness of breath, chest pain, abdominal pain, bleeding, fevers, or worsening of medical condition. Patient was counseled about treatment plan, medications, possible side effects, patientverbalized understanding. All questions were answered to the best of my ability. This discharge took greater then 30 minutes in planning, reviewing documentation, counseling the patient, and discussing with other team members." ASSESSMENT ASSESSMENT Assessment Left foot osteomyelitis Visit Coding STANDARD RES Billing Provider: LEON WISEMAN MD Date of Service if different f: Apr 02, 2025 Common Visit Codes: [id number]/[id number] DISCH DAY >30min CHARLY HORTON RESIDENT Apr 02, 2025 13:30 LEON WISEMAN MD Apr 03, 2025 14:44
[2025-04-03 01:00] VITALS: BP 127/74; PULSE 82; RESP 18; TEMP 97.4; O2SAT 96
[2025-04-03 04:56] VITALS: BP 131/83; PULSE 84; RESP 18; TEMP 97.8; O2SAT 97
[2025-04-03 08:00] VITALS: PULSE 95; RESP 18
[2025-04-03 09:00] VITALS: BP 136/85; PULSE 82; RESP 18; TEMP 98.6; O2SAT 95
[2025-04-03 13:00] VITALS: BP_SYST 111; BP_SYST 155; BP_DIAS 63; BP_DIAS 90; PULSE 72; PULSE 79; RESP 16; TEMP 97.7; TEMP 98.3; O2SAT 96; O2SAT 98
--- NOTE | 2025-04-03 14:54 | DVHPNRES ---
Progress Note Date Seen: Apr 03, 2025 Resident Creating Document: CHARLY HORTON RESIDENT Medical Necessity Reason Pt with a Central, PICC or Fol: No Subjective Review of Systems This is a 64-year-old male with past medical history of DM 2 came to ER with a complaint of left foot pain associated with swelling, redness, and whitish house smelling discharge one month. The foot pain was 9/10, localized, dull in nature, aggravated on hanging or during walking and mild relieved on taking rest and elevation. Denies Any recent history of trauma or MVA. Patient decided came to ER exiting getting worse day by day. Patient noncompliance with medication and not follow-up with primary care. Podiatry consulted and left dorsal foot medial and lateral I and D done on 03/23/2025. Past medical history: Dm 2 Past surgical history: Nothing contributing Family history: Nothing contributory Personal history: Marijuana and alcohol use disorder. PCP: Not selected Allergy: No known allergy Seen and evaluated in bedside. Patient denies acute distress. Patient clinically stable transfer SNF. when the bed will be available, patient will be transfer. Objective vital signs Vital Sign Date Time Temp Pulse Resp B/P (MAP) Pulse Ox O2 Delivery O2 Flow Rate FiO2 04/03/25 13:00 97.7 79 16 111/63 (79) 96 97.7 04/03/25 08:00 Room Air* 0 21 Total Intake and Output 04/02/25 04/02/25 04/03/25 15:00 23:00 07:00 Intake Total 50 ml 1500 ml 800 ml Output Total 800 ml 1200 ml Balance 50 ml 700 ml -400 ml medications Current Medications Medications Dose Ordered Sig/Thea Route Start Time Stop Time Status Last Admin Dose Admin Diagnostic Test (Pha) 1 strip Q6HR 03/26/25 00:00 04/03/25 12:28 1 STRIP Insulin Human Regular Q6HR SC 03/26/25 00:00 04/03/25 12:27 3 UNITS Dextrose 50 ml UD PRN IV 03/25/25 23:30 Acetaminophen/ Hydrocodone Bitart 1 tab Q4HP PRN PO 03/25/25 23:30 04/03/25 10:22 1 TAB Ondansetron HCl 4 mg Q4HP PRN IV 03/25/25 23:30 Acetaminophen 650 mg Q6HP PRN PO 03/25/25 23:30 Heparin Sodium (Porcine) 5,000 units Q12HR SC 03/27/25 10:00 04/03/25 10:24 5,000 UNITS Famotidine 20 mg DAILY PO 03/27/25 10:00 04/03/25 10:22 20 MG Ascorbic Acid 500 mg DAILY PO 03/28/25 10:00 04/03/25 10:22 500 MG Zinc Sulfate 220 mg DAILY PO 03/28/25 10:00 04/03/25 10:22 220 MG Sodium Chloride 10 ml QSHIFT@10,22 IV 03/29/25 10:00 04/03/25 12:13 10 ML Insulin Glargine 20 units HS@2200 SC 03/29/25 22:00 04/02/25 22:19 20 UNITS Linezolid 600 mg BID PO 03/30/25 10:00 04/03/25 10:22 600 MG Ertapenem 1 gm/ Sodium Chloride 50 ml @ 100 mls/hr DAILY IV 03/31/25 10:00 04/03/25 12:12 100 MLS/HR Ergocalciferol 50,000 unit Q7D PO 03/31/25 10:45 03/31/25 11:05 50,000 UNIT Examination Patient currently lying on bed General Appearance: Alert, Oriented X3, Cooperative, No acute distress HEENT: Atraumatic, PERRLA, EOMI, Mucous membrane moist/pink Respiratory: Clear to auscultation, Normal air movement Cardiovascular: Regular rate, Normal S1, Normal S2, No murmurs, no chest wall tenderness Abdominal: Normal bowel sounds, Soft, No tenderness, No hepatospenomegaly, No masses Extremities: Left foot covered with dry bandage, No cyanosis, No edema, Normal pulses, No tenderness/swelling Skin: No rashes, No breakdown, No significant lesion Neuro: Normal speech, Strength at 5/5 X4 ext, Normal tone, Sensation intact, Cranial nerves 3-12 NL Psych/Mental Status: Mental status NL, Mood NL laboratory and microbiology Laboratory Tests 04/02/25 05:10 Test 04/02/25 05:10 Range/Units Serum Glucose 123 H 74-106 mg/dL Microbiology Date/Time Source Procedure Growth Status 03/26/25 12:10 Foot Left Gram Stain - Final Complete 03/26/25 12:10 Anaerobic Culture - Final Bacteroides fragilis Complete 03/26/25 12:10 Aerobic Culture - Final Providencia rettgeri Enterococcus faecalis Complete 03/25/25 20:08 Blood Blood Culture - Final NO GROWTH AFTER 5 DAYS OF INCUBATION. Complete Problem List/Assessment/Plan Problem List/Assessment/Plan Left foot osteomyelitis Left foot cellulitis Left foot Necrotizing fascitis Left foot diabetic ulcer Sepsis due to above Left foot x-ray shows osteoporosis noted, recommended MRI. Duplex left lower extremity no finding of arterial insufficiency. MRI left foot: Diffuse cellulitis and gas gangrene of left foot, septic joint of 2nd and 3rd MTP joints with osteomyelitis. Plantar and interosseous myositis. Podiatry consulted and I and D medial and lateral left foot done on 03/26/2025. 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 Diet: Carbohydrate Consistent DVT prophylaxis: Heparin GI prophylaxis: Famotidine Goals of care discussions. More than 21 minute spent with patient. Full code status. Awaiting bed availability Placement to SNF. Case discussed with Dr. Calix. Plan discussed with: Patient, Other (Nurse) My Orders My Orders Orders - CHARLY HORTON RESIDENT Procedure Category Date Status Time Discharge DISCHARGE 04/03/25 Transmitted 11:48 Dietary Evaluation Review Comments: Nutrition Recommendation: 1) Roberto 1 pk BID 2) Monitor PO intake, lab values, weight trend, and I/O Expected Outcomes/Goals: Wound to improve FU 3-5 days Visit Coding STANDARD RES Billing Provider: LEON CALIX MD Date of Service if different f: Apr 03, 2025 CHARLY HORTON RESIDENT Apr 03, 2025 14:54
[2025-04-03 17:00] VITALS: BP 156/89; PULSE 91; RESP 18; TEMP 96.4; O2SAT 97
== END 2025-04-03 18:40 | DRG 720 ==
LOC: ER 19:13 → OVERFLOW 23:26 → CENTRAL 03-26 16:10
PROVIDERS: ADMIT Student in an Organized Health Care Education/Training Program; ATTEND Student in an Organized Health Care Education/Training Program
PROC: 0Y9N0ZZ Drainage of Left Foot, Open Approach (ICD-10-PCS; principal; 2025-03-26 11:54)
PROC: 02HV33Z Insertion of Infusion Device into Superior Vena Cava, Percutaneous Approach (ICD-10-PCS; 2025-03-29)
PROC: B548ZZA Ultrasonography of Superior Vena Cava, Guidance (ICD-10-PCS; 2025-03-29)
DX: A41.9 Sepsis, unspecified organism (principal); N17.0 Acute kidney failure with tubular necrosis; A48.0 Gas gangrene; M72.6 Necrotizing fasciitis; E83.51 Hypocalcemia; E88.09 Other disorders of plasma-protein metabolism, not elsewhere classified; D63.8 Anemia in other chronic diseases classified elsewhere; E11.52 Type 2 diabetes mellitus with diabetic peripheral angiopathy with gangrene; M86.8X7 Other osteomyelitis, ankle and foot; L03.116 Cellulitis of left lower limb; M00.9 Pyogenic arthritis, unspecified; L02.612 Cutaneous abscess of left foot; F15.10 Other stimulant abuse, uncomplicated; N18.9 Chronic kidney disease, unspecified; E11.69 Type 2 diabetes mellitus with other specified complication; M81.0 Age-related osteoporosis without current pathological fracture; E87.1 Hypo-osmolality and hyponatremia; E87.8 Other disorders of electrolyte and fluid balance, not elsewhere classified; E11.621 Type 2 diabetes mellitus with foot ulcer; E11.65 Type 2 diabetes mellitus with hyperglycemia; E11.22 Type 2 diabetes mellitus with diabetic chronic kidney disease; R74.8 Abnormal levels of other serum enzymes; Z91.148 Patient's other noncompliance with medication regimen for other reason; Z71.51 Drug abuse counseling and surveillance of drug abuser
CPT/HCPCS: 36415; 36569; 71045; 73630; 73718; 76937; 80048; 80053; 80202; 80307; 81001; 82306; 82565; 82607; 82962; 83036; 83605; 83880; 83930; 83935; 84300; 84443; 85025; 85610; 85730; 87040; 87070; 87075; 87076; 87077; 87186; 87205; 93926; 96365; G0378; J1335; J1815; J2003; J3490